=== PATIENT | male | born 1950 | race Two or more races ===

== ENCOUNTER 2017-09-09 14:24 | Emergency (ER) | payer OTHER ==
[2017-09-09] MEDS ORDERED: HYDROCHLOROTHIAZIDE 50 MG TAB PO SCH (14:30)
[2017-09-09] MEDS ORDERED: hydrALAZINE 20 MG/ML VIAL IVP ONE (14:32)
--- NOTE | 2017-09-09 14:35 | EDPHY ---
H & P HPI/ROS: CHIEF COMPLAINT: Hypertension HISTORY OF PRESENT ILLNESS: The patient is a 67-year-old man who comes to the ER by EMS for asymptomatic hypertension. He states that he follows hypertension daily but that he ran out of clonidine he had been taking since I saw him in the ER in February. His primary has him on hydrochlorothiazide 50 mg every morning and hydralazine 25 mg every morning. Today he knows his blood pressure was 230/140. He is asymptomatic. No chest pain. No headache. No shortness of breath. He does have a history of intracranial hemorrhage remotely but no symptoms currently. REVIEW OF SYSTEMS: Constitutional: denies: chills, fever, recent illness, recent injury EENTM: denies: blurred vision, double vision, nose congestion Respiratory: denies: cough, shortness of breath Cardiac: denies: chest pain, irregular heart rate, lightheadedness, palpitations Gastrointestinal/Abdominal: denies: abdominal pain, diarrhea, nausea, vomiting, blood streaked stools Genitourinary: denies: dysuria, frequency, hematuria, pain Musculoskeletal: denies: joint pain, muscle pain Skin: denies: lesions, rash, jaundice, bruising Neurological: denies: headache, numbness, paresthesia, tingling, dizziness, weakness Hematologic/Lymphatic: denies: blood clots, easy bleeding, easy bruising Immunologic/allergic: denies: HIV/AIDS, transplant EXAM: GENERAL: Well-appearing, well-nourished and in no acute distress. HEAD: Atraumatic, normocephalic. EYES: Pupils equal round and reactive to light, extraocular movements intact, sclera anicteric, conjunctiva are normal. ENT: TMs normal, nares patent, oropharynx clear without exudates. Moist mucous membranes. NECK: Normal range of motion, supple without lymphadenopathy or JVD. LUNGS: Breath sounds clear to auscultation bilaterally and equal. No wheezes rales or rhonchi. HEART: Regular rate and rhythm without murmurs, rubs or gallops. ABDOMEN: Soft, nontender, normoactive bowel sounds. No guarding, no rebound. No masses appreciated. BACK: No CVA tenderness, no spinal tenderness, step-offs or deformities EXTREMITIES: Normal range of motion, no pitting or edema. No clubbing or cyanosis. NEUROLOGICAL: Cranial nerves II through XII grossly intact. Normal speech, normal gait. 5/5 strength, normal movement in all extremities, normal sensation PSYCH: Normal mood, normal affect. SKIN: Warm, dry, normal turgor, no visible rashes or lesions. Source: Patient Exam Limitations: No limitations - Medical/Surgical History Hx Asthma: No Hx Chronic Respiratory Disease: No Hx Diabetes: No Hx Cardiac Disease: No Hx Renal Disease: No Hx Cirrhosis: No Hx Alcoholism: No Hx HIV/AIDS: No Hx Splenectomy or Spleen Trauma: No Other PMH: hypertension - Family History Significant Family History: No pertinent family hx - Social History Smoking Status: Former smoker Alcohol Use: Sober Drug Use: None Constitutional: Initial Vital Signs Temperature (C) 36.3 C 09/09/17 14:24 Heart Rate 117 H 09/09/17 14:24 Respiratory Rate 16 09/09/17 14:24 Blood Pressure 271/154 H 09/09/17 14:24 O2 Sat (%) 95 09/09/17 14:24 O2 Delivery Mode Room Air Allergies/Adverse Reactions: pseudoephedrine HCl [From Sudafed] Allergy (Unknown, Verified 03/15/16 06:00) Home Medications: Medication Instructions Recorded Hydrochlorothiazide [HCTZ (*)] 12.5 mg PO DAILY #0 cap 10/29/12 Lisinopril [Zestril 20 mg (*)] 20 mg PO BID #0 tab 10/29/12 amLODIPine BESYLATE [Norvasc 10 mg 10 mg PO DAILY #0 tab 10/29/12 (*)] clonIDINE [Catapres (*)] 0.1 mg PO BID #0 tab 10/29/12 hydrALAZINE [Apresoline 50 mg (*)] 50 mg PO TID #0 tab 10/29/12 clonIDINE [Catapres (*)] 0.1 mg PO BID #60 tab 09/09/17 Medical Decision Making - Diagnostics EKG Interpretation: An EKG obtained and was read and documented in trace view. Please see trace view for full reading and report. Sinus tachycardia, right bundle branch block unchanged from previous ED Course/Re-evaluation: 5:20 p.m. the patient remains asymptomatic. His heart rate is improved but his blood pressure still elevated 240/140. I will treated 2nd dose of clonidine. 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 6:00 p.m. the patient remains asymptomatic. His heart rate is in 80s and blood pressure is 200/100. He is eager to go home. I will discharge him at this time. I will have him start the clonidine again and have him speak with his primary about placing at. The patient understands and agrees with this plan. Differential Diagnosis: Partial list of the Differential diagnosis considered include but were not limited to; hypertension, anxiety and although unlikely based on the history and physical exam, I also considered infection, acute coronary disease, arrhythmia, CVA. I discussed these differential diagnoses and the plan with the patient as well as the usual and expected course. The patient understands that the diagnosis is provisional and that in medicine we are not always correct and that further workup is often warranted. Usual and customary warnings were given. All of the patient's questions were answered. The patient was instructed to return to the emergency department should the symptoms at all worsen or return, otherwise to followup with the physician as we discussed. - Data Points Medications Given: Discontinued Medications Clonidine (Catapres) 0.1 mg PO EDNOW ONE Stop: 09/09/17 15:47 Last Admin: 09/09/17 15:50 Dose: 0.1 mg Clonidine (Catapres) 0.1 mg PO EDNOW ONE Stop: 09/09/17 17:20 Last Admin: 09/09/17 17:25 Dose: 0.1 mg Hydralazine HCl (Apresoline) 10 mg IVP EDNOW ONE Stop: 09/09/17 14:33 Last Admin: 09/09/17 14:45 Dose: 10 mg Hydrochlorothiazide (Hydrochlorothiazide) 50 mg PO DAILY GENNARO Stop: 03/08/18 14:29 Last Admin: 09/09/17 15:25 Dose: Not Given Hydrochlorothiazide (Hydrochlorothiazide) 50 mg PO EDNOW ONE Stop: 09/09/17 15:01 Last Admin: 09/09/17 15:18 Dose: 50 mg Metoprolol Tartrate (Lopressor) 50 mg PO EDNOW ONE Stop: 09/09/17 16:32 Last Admin: 09/09/17 16:39 Dose: 50 mg Departure - Departure Disposition: Home, Routine, Self-Care Clinical Impression: HTN (hypertension) Qualifiers: Hypertension type: unspecified Qualified Code(s): I10 - Essential (primary) hypertension Condition: Fair Instructions: Chronic Hypertension (ED) Referrals: Patient,NotPresent [Unknown] - As per Instructions Prescriptions: clonIDINE [Catapres (*)] 0.1 mg PO BID #60 tab
[2017-09-09] MEDS ORDERED: HYDROCHLOROTHIAZIDE 50 MG TAB PO ONE (15:00)
--- NOTE | 2017-09-09 15:35 | CPEKG ---
Heart Rate: 113 RR Interval: 531 P-R Interval: 160 QRSD Interval: 132 QT Interval: 344 QTC Interval: 472 P [place]: 86 QRS [place]: 81 T Wave [place]: -70 EKG Severity - ABNORMAL ECG - EKG Impression: SINUS TACHYCARDIA EKG Impression: PROBABLE LEFT ATRIAL ABNORMALITY EKG Impression: RBBB AND LPFB Electronically Signed By: Gus Anderson 09-Sep-2017 15:46:22
[2017-09-09] MEDS ORDERED: METOPROLOL TARTRATE 50 MG TAB PO ONE (16:31)
[2017-09-09 17:29] VITALS: RESP 18; O2SAT 98
[2017-09-09 18:25] VITALS: BP 202/122; PULSE 78; TEMP 97.5
== END 2017-09-09 18:27 | disposition home or self-care (01) ==
LOC: EDUNIT#
DX: I10 Essential (primary) hypertension (principal); Z87.891 Personal history of nicotine dependence
CPT/HCPCS: 96374; J0360

== ENCOUNTER 2017-11-10 22:20 | Inpatient (IN) | payer OTHER ==
--- NOTE | 2017-11-10 22:25 | EDPHY ---
H & P HPI/ROS: HPI CHIEF COMPLAINT: Hypertension and nausea HISTORY OF PRESENT ILLNESS: This patient is 67-year-old male, significant past medical history for hypertension and intracranial bleed, he presents emergency room by private vehicle after his neighbor dropped him off. He presents with hypertension and nausea. He denies any headache or chest pain. Denies focal weakness. Denies numbness or tingling. His main complaint is feeling nauseous today. He still nauseous throughout the day. At 7:00 a.m. he took his blood pressure and states that it was in the 150 systolic. He missed his noon blood pressure medication as he has been having nausea but not having any vomiting. Denies diarrhea. Denies fever. He tells me he is compliant with his blood pressure medications. Upon arrival to the emergency room is noted to be very hypertensive 270s/150 complaining of nausea without chest pain or shortness of breath. He denies any abdominal pain. Denies headache. Patient reports to me he does not remember his clonidine dose. Past Medical History: Hypertension, intracranial bleed, diverticulitis Past Surgical History: Diverticulitis causing peritonitis requiring surgery Social History: Denies daily use of drugs alcohol tobacco. Lives locally. Family History: Noncontributory ROS REVIEW OF SYSTEMS: A comprehensive 10 point review of systems is otherwise negative aside from elements mentioned in the history of present illness. Exam Constitutional appears nontoxic, triage nursing summary reviewed, vital signs reviewed, awake/alert. Vital signs noted at triage to be very hypertensive Eyes normal conjunctivae and sclera, EOMI, PERRLA. HENT normal inspection, atraumatic, moist mucus membranes, no epistaxis, neck supple/ no meningismus, no raccoon eyes. Respiratory clear to auscultation bilaterally, normal breath sounds, no respiratory distress, no wheezing. Cardiovascular rate normal, regular rhythm, no murmur, no edema, distal pulses normal. Gastrointestinal soft, non-tender, no rebound, no guarding, normal bowel sounds, no distension, no pulsatile mass. Genitourinary no CVA tenderness. Musculoskeletal no midline vertebral tenderness, full range of motion, no calf swelling, no tenderness of extremities, no meningismus, good pulses, neurovascularly intact. Skin pink, warm, & dry, no rash, skin atraumatic. Neurologic awake, alert and oriented x 3, AAOx3, moves all 4 extremities equally, motor intact, sensory intact, CN II-XII intact, normal cerebellar, normal vision, normal speech. Psychiatric normal mood/affect. Heme/Lymph/Immune no lymphadenopathy. Differential Diagnosis: Includes but is not limited to in a particular order hypertensive emergency, hypertensive urgency, acute coronary syndrome, aortic dissection, intracranial bleed, hypertension causing end-organ damage, acute nausea from hypertension, medication noncompliance Medical Decision Making: Plan for this patient will be placed on full gambling monitor, IV will be established I have ordered him 10 mg IV hydralazine, 25 mg p.o. HCTZ, and 0.1 mg clonidine. Will obtain EKG, troponin, basic blood work, IV fluid bolus 500 cc and 4 mg IV Zofran for nausea. Re-evaluation: EKG interpretation by me on record in [employer] system. Impression time of EKG 2231: Sinus rhythm rate of 99 the right bundle-branch block present. I do not appreciate acute ischemic change on this EKG. When I compare this EKG to his old EKG dated 09/09/2017 very similar morphology. 2238: Plan for this patient slowly lower his blood pressure and re-evaluate closely. 2300: Patient signed over to Dr. Regina Braun at 11:00 p.m. shift change. Follow up labs. Follow up trop. ED x-ray chest one view reviewed by myself. Negative for acute cardiopulmonary disease. 2354: Patient's blood pressure still very high 227/121 despite oral and IV blood pressure medications I will order him on nicardipine drip. He will need to be admitted to the ICU at [facility]. 2257: Spoke with Lindsey Parrish. They have ICU Bed. Will plan on him being transfered to ICU at . 2314: Patient has been accepted at [facility] ICU inpatient hospitalization for hypertensive emergency. Spoke with Dr. Bang, who has accepted the patient. Patient is currently on a nicardipine drip systolic blood pressure down to 200. Will hold here around 200. Given that his initial blood pressure is 2 70s. 2314: I did re-evaluate the patient this time he has no chest pain or shortness of breath. He does complain of nausea. He did get up to urinate his heart rate did go up to 130s. I have asked Dr. Braun. Additionally will transfer patient by critical care transport to [facility]. Patient agrees for transfer. Source: Patient - Medical/Surgical History Hx Asthma: No Hx Chronic Respiratory Disease: No Hx Diabetes: No Hx Cardiac Disease: No Hx Renal Disease: No Hx Cirrhosis: No Hx Alcoholism: No Hx HIV/AIDS: No Hx Splenectomy or Spleen Trauma: No Other PMH: hypertension - Social History Smoking Status: Former smoker Constitutional: Initial Vital Signs Temperature (C) 36.9 C 11/10/17 22:29 Heart Rate 108 H 11/10/17 22:29 Respiratory Rate 18 11/10/17 22:29 Blood Pressure 272/139 H 11/10/17 22:29 O2 Sat (%) 98 11/10/17 22:29 O2 Delivery Mode Nasal Cannula O2 (L/minute) 2 Allergies/Adverse Reactions: pseudoephedrine HCl [From Sudafed] Allergy (Unknown, Verified 11/11/17 09:00) Other-Enter Comments lorazepam [From Ativan] Allergy (Verified 11/11/17 09:00) Nausea/vomiting Home Medications: Medication Instructions Recorded clonIDINE [Catapres (*)] 0.1 mg PO BID #0 tab 10/29/12 hydrALAZINE [Apresoline 50 mg (*)] 50 mg PO TID #0 tab 10/29/12 Aspirin EC [Aspirin EC 81 mg (*)] 162 mg PO DAILY 11/11/17 Hydrochlorothiazide [HCTZ (*)] 12.5 mg PO DAILY 11/11/17 Psyllium Husk (with Sugar) 1 each PO DAILY 11/11/17 [Metamucil Packet] Medical Decision Making - Data Points Laboratory Results: Laboratory Results 11/10/17 22:36 11/10/17 22:36 Medications Given: Discontinued Medications Amlodipine Besylate (Norvasc) 5 mg PO DAILY GENNARO Stop: 05/10/18 09:14 Last Admin: 11/11/17 10:11 Dose: 5 mg Clonidine (Catapres) 0.1 mg PO EDNOW ONE Stop: 11/10/17 22:32 Last Admin: 11/10/17 22:37 Dose: 0.1 mg Hydralazine HCl (Apresoline) 10 mg IVP EDNOW ONE Stop: 11/10/17 22:32 Last Admin: 11/10/17 22:37 Dose: 10 mg Hydrochlorothiazide (Hydrochlorothiazide) 25 mg PO EDNOW ONE Stop: 11/10/17 22:32 Last Admin: 11/10/17 22:37 Dose: 25 mg Sodium Chloride (Ns) 500 mls @ 1,000 mls/hr IV EDNOW ONE PRN Reason: Protocol Stop: 11/10/17 22:59 Last Admin: 11/10/17 22:44 Dose: 500 mls Nicardipine/Sodium Chloride (Cardene 0.1 Mg/Ml (Premix)) 200 mls @ 0 mls/hr IV CONT GENNARO; Titrate PRN Reason: Protocol Stop: 05/09/18 22:59 Last Admin: 11/10/17 23:00 Dose: 200 mls Sodium Chloride (Ns) 500 mls @ 0 mls/hr IV ONCE ONE PRN Reason: Wide Open Stop: 11/10/17 23:32 Last Admin: 11/10/17 23:40 Dose: 500 mls Nicardipine/Sodium Chloride (Cardene 0.1 Mg/Ml (Premix)) 200 mls @ 0 mls/hr IV CONT GENNARO; Titrate PRN Reason: Protocol Stop: 05/09/18 23:44 Last Admin: 11/11/17 10:21 Dose: 200 mls Ondansetron HCl (Zofran) 4 mg IVP Q4HRS PRN PRN Reason: Nausea/Vomiting, Can't Take PO Stop: 05/09/18 23:32 Last Admin: 11/11/17 10:13 Dose: 4 mg Promethazine HCl (Phenergan) 6.25 - 12.5 mg IVP Q6HRS PRN PRN Reason: Nausea/Vomiting, Can't Take PO Stop: 05/10/18 01:38 Last Admin: 11/11/17 02:00 Dose: 12.5 mg Tamsulosin HCl (Flomax) 0.4 mg PO DAILY GENNARO Stop: 05/10/18 09:14 Last Admin: 11/11/17 09:49 Dose: 0.4 mg Departure - Departure Disposition: [facility] Clinical Impression: Nausea, Hypertensive emergency Hypertension Qualifiers: Hypertension type: unspecified Qualified Code(s): I10 - Essential (primary) hypertension Condition: Serious
[2017-11-10] MEDS ORDERED: NS 500 ML IV ONE ×2 (22:30→23:31)
[2017-11-10] MEDS ORDERED: HYDROCHLOROTHIAZIDE 25 MG TAB PO ONE (22:31)
[2017-11-10] MEDS ORDERED: hydrALAZINE 20 MG/ML VIAL IVP ONE (22:31)
[2017-11-10 22:36] LABS: COLOR YELLOW; LEUKOCYTE ESTERASE,URINE NEGATIVE (NEGATIVE); NITRITE,URINE NEGATIVE (NEGATIVE)
--- NOTE | 2017-11-10 22:36 | CPEKG ---
Heart Rate: 99 RR Interval: 606 P-R Interval: 122 QRSD Interval: 132 QT Interval: 380 QTC Interval: 488 P [place]: 69 QRS [place]: 79 T Wave [place]: 27 EKG Severity - ABNORMAL ECG - EKG Impression: SINUS RHYTHM EKG Impression: RIGHT BUNDLE BRANCH BLOCK Electronically Signed By: Irma Clement 11-Nov-2017 14:06:49
[2017-11-10 22:45] LABS: RBC,URINE NONE SEEN /hpf (0-3); WBC,URINE 0-1 /hpf (0-3)
[2017-11-10 22:51] LABS: % IMMATURE GRANULYOCYTES 0.4 % (0.0-1.1); ABSOLUTE IMMATURE GRANULOCYTES 0.02 10^3/uL (0.00-0.10); ADD DIFF? NO; ADD MORPH? NO; ADD SCAN? NO; ATYPICAL LYMPHOCYTE FLAG 0 (0-99); FRAGMENT RBC FLAG 0 (0-99); HEMATOCRIT 49.2 % (40.0-51.0); HEMOGLOBIN 17.2 g/dL (13.7-17.5); LEFT SHIFT FLG 0 (0-99); LIPEMIA HEMOLYSIS FLAG 90 (0-99); MEAN CELL HEMOGLOBIN 31.7 pg (27.9-34.1); MEAN CELL VOLUME 90.6 fL (81.5-99.8); MEAN PLATELET VOLUME 10.1 fL (8.7-11.7); PLATELET CLUMPS FLAG 0 (0-99); PLATELET COUNT 210 10^3/uL (150-400); RED BLOOD CELL COUNT 5.43 10^6/uL (4.40-6.38); RED CELL DISTRIBUTION WIDTH 12.1 % (11.5-15.2)
[2017-11-10] MEDS ORDERED: niCARdipine/NACL/200 ML BAG IV ONE (22:55)
[2017-11-10 23:00] LABS: INR 0.98 (0.83-1.16); PROTIME(PATIENT) 12.9 SEC (12.0-15.0)
[2017-11-10] MEDS ORDERED: niCARdipine/NACL 200 ML IV SCH ×2 (23:00→23:45)
[2017-11-10 23:01] LABS: APTT 33.2 SEC (23.0-38.0)
[2017-11-10 23:05] LABS: ALBUMIN 4.2 g/dL (3.5-5.0); BILIRUBIN-CONJUGATED 0.3 mg/dL (0.0-0.5); BILIRUBIN-UNCONJUGATED 0.7 mg/dL (0.0-1.1); CALCIUM 10.3 mg/dL (8.5-10.4); CREATININE 1.4 mg/dL (0.7-1.3); MAGNESIUM 2.2 mg/dL (1.6-2.3); POTASSIUM 4.3 mEq/L (3.5-5.2); TOTAL PROTEIN 7.4 g/dL (6.3-8.2)
[2017-11-10 23:16] LABS: CREATINE KINASE-MB FRACTION 1.5 ng/mL (0.00-4.55); TROPONIN I 0.019 ng/mL (0.000-0.034)
[2017-11-10] MEDS ORDERED: ACETAMINOPHEN 325 MG TAB PO PRN (23:33)
[2017-11-10] MEDS ORDERED: HYDROCODONE/APAP 5/325 TAB PO PRN (23:33)
[2017-11-10] MEDS ORDERED: ONDANSETRON 4 MG/2 ML VIAL IVP PRN (23:33)
[2017-11-11] MEDS ORDERED: PROMETHAZINE HCL 25 MG/ML INJ IVP PRN (01:39)
--- NOTE | 2017-11-11 02:43 | PDGENHP ---
History and Physical - Chief Complaint nausea, HTN - History of Present Illness Source - patient able to provide history and appears reliable. 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 Patient denies any vomiting, diarrhea, fevers/chills or abdominal pain. He reports he had decreased appetite and did not take his afternoon antihypertensive medications. Patient triage vitals were significant for BP 270/170. He denies any headache, changes in vision, numbness/tingling or weakness. Patient has chronic mild L facial drooping as sequelae from his hemorrhagic cva. Patient is known to me from previous hospitalization at [facility] last week. In the last 2-3 weeks patient has has numerous ED visits at [facility] at end of september/beginning of October with 1 hospitalization for hypertensive urgency and angelica. He has had multiple ED visits at [facility] last week with 1 admission also for hypertensive urgency. Patient had evidence of angelica for which his lisinopril and HCTZ had been held. He is also on clonidine PO and hydralazine TID for which there is question of medication compliance. History Information - Allergies/Home Medication List Allergies/Adverse Reactions: pseudoephedrine HCl [From [employer]] Allergy (Unknown, Verified 03/15/16 06:00) I have personally reviewed and updated: family history, medical history, social history, surgical history - Past Medical History Additional medical history: benign essential HTN uncontrolled. 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 diverticulitis s/p ex lap for perf/peritonitis. hx of poor medication compliance. - Surgical History Additional surgical history: ex-lap for peritonitis related to diverticular perforation. - Family History Additional family history: father - HTN - Social History Smoking Status: Former smoker (quit 2010) Tobacco Use: Cigarettes Alcohol Use: Sober (quit drinking early August 2017 after completing rehab program in [place].) Drug Use: None (patient denies any illicit drug use. reports his sister with whom he lives smokes a lot of marijuana. ) Additional social history: COR - FULL. patient desires mother Madison Segal to act as proxy if needed. Review of Systems Review of Systems: ROS: 10pt was reviewed & negative except for what was stated in HPI & below Physical Exam Physical Exam: Selected Entries 11/10/17 22:29 Blood Pressure Automatic Method Heart Rate 108 H Respiratory 18 Rate O2 Sat (%) 98 Temperature (C) 36.9 C Blood Pressure 272/139 H Mean Arterial 183 H Pressure (MAP) O2 Delivery Room Air Mode Temperature Oral Source Temp Pulse Resp BP Pulse Ox 36.9 C 120 H 16 210/110 H 99 11/10/17 22:29 11/10/17 23:59 11/10/17 23:59 11/10/17 23:59 11/10/17 23:59 O2 (L/minute) 2 Constitutional: no apparent distress, not in pain, chronically ill appearing, uncomfortable (patient appears fatigued and uncomfortable with complaints of persistent nausea. ) Eyes: PERRL, anicteric sclera, EOMI, No scleral injection Ears, Nose, Mouth, Throat: moist mucous membranes, ears appear normal, no oral mucosal ulcers, poor dentition Cardiovascular: regular rate and rhythym, no murmur, rub, or gallop, pulses symmetric bilaterally, No systolic murmur, No edema Peripheral Pulses: 1+: dorsalis-pedis (R), dorsalis-pedis (L) Respiratory: no respiratory distress, no rales or rhonchi, clear to auscultation Gastrointestinal: normoactive bowel sounds, soft, non-tender abdomen, no palpable masses, No rebound, No distension Genitourinary: no bladder tenderness, lopez in urethra Skin: warm, normal color, no rashes or abrasions, No fluctuance, No rash Musculoskeletal: full muscle strength, No pain with ROM, No generalized weakness Neurologic: AAOx3, sensation intact bilaterally, facial droop (minimal nasolabial fold flattening) Psychiatric: interacting appropriately, not anxious, not encephalopathic, thought process linear, encephalopathic Lab Data & Imaging Review 11/10/17 22:36 11/10/17 22:36 WBC 5.16 10^3/uL (3.80-9.50) 11/10/17 22:36 RBC 5.43 10^6/uL (4.40-6.38) 11/10/17 22:36 Hgb 17.2 g/dL (13.7-17.5) 11/10/17 22:36 Hct 49.2 % (40.0-51.0) 11/10/17 22:36 MCV 90.6 fL (81.5-99.8) 11/10/17 22:36 MCH 31.7 pg (27.9-34.1) 11/10/17 22:36 MCHC 35.0 g/dL (32.4-36.7) 11/10/17 22:36 RDW 12.1 % (11.5-15.2) 11/10/17 22:36 Plt Count 210 10^3/uL (150-400) 11/10/17 22:36 MPV 10.1 fL (8.7-11.7) 11/10/17 22:36 Neut % (Auto) 53.1 % (39.3-74.2) 11/10/17 22:36 Lymph % (Auto) 33.3 % (15.0-45.0) 11/10/17 22:36 [place] % (Auto) 9.3 % (4.5-13.0) 11/10/17 22:36 Eos % (Auto) 3.5 % (0.6-7.6) 11/10/17 22:36 Baso % (Auto) 0.4 % (0.3-1.7) 11/10/17 22:36 Nucleat RBC Rel Count 0.0 % (0.0-0.2) 11/10/17 22:36 Absolute Neuts (auto) 2.74 10^3/uL (1.70-6.50) 11/10/17 22:36 Absolute Lymphs (auto) 1.72 10^3/uL (1.00-3.00) 11/10/17 22:36 Absolute Monos (auto) 0.48 10^3/uL (0.30-0.80) 11/10/17 22:36 Absolute Eos (auto) 0.18 10^3/uL (0.03-0.40) 11/10/17 22:36 Absolute Basos (auto) 0.02 10^3/uL (0.02-0.10) 11/10/17 22:36 Absolute Nucleated RBC 0.00 10^3/uL (0-0.01) 11/10/17 22:36 Immature Gran % 0.4 % (0.0-1.1) 11/10/17 22:36 Immature Gran # 0.02 10^3/uL (0.00-0.10) 11/10/17 22:36 PT 12.9 SEC (12.0-15.0) 11/10/17 22:36 INR 0.98 (0.83-1.16) 11/10/17 22:36 APTT 33.2 SEC (23.0-38.0) 11/10/17 22:36 Sodium 139 mEq/L (134-144) 11/10/17 22:36 Potassium 4.3 mEq/L (3.5-5.2) 11/10/17 22:36 Chloride 104 mEq/L (97-110) 11/10/17 22:36 Carbon Dioxide 18 mEq/l (22-31) L 11/10/17 22:36 Anion Gap 17 mEq/L (8-16) H 11/10/17 22:36 BUN 27 mg/dL (7-23) H 11/10/17 22:36 Creatinine 1.4 mg/dL (0.7-1.3) H 11/10/17 22:36 Estimated GFR 51 11/10/17 22:36 Glucose 116 mg/dL (70-100) H 11/10/17 22:36 Calcium 10.3 mg/dL (8.5-10.4) 11/10/17 22:36 Magnesium 2.2 mg/dL (1.6-2.3) 11/10/17 22:36 Total Bilirubin 1.0 mg/dL (0.1-1.4) 11/10/17 22:36 Conjugated Bilirubin 0.3 mg/dL (0.0-0.5) 11/10/17 22:36 Unconjugated Bilirubin 0.7 mg/dL (0.0-1.1) 11/10/17 22:36 AST 22 IU/L (17-59) 11/10/17 22:36 ALT 36 IU/L (21-72) 11/10/17 22:36 Alkaline Phosphatase 89 IU/L (38-126) 11/10/17 22:36 Creatine Kinase 55 IU/L (0-224) 11/10/17 22:36 CK-MB (CK-2) Fraction 1.50 ng/mL (0.00-4.55) 11/10/17 22:36 Troponin I 0.019 ng/mL (0.000-0.034) 11/10/17 22:36 NT-Pro-B Natriuret Pep 2110 pg/mL (0-125) H 11/10/17 22:36 Total Protein 7.4 g/dL (6.3-8.2) 11/10/17 22:36 Albumin 4.2 g/dL (3.5-5.0) 11/10/17 22:36 Lipase 398 IU/L (23-300) H 11/10/17 22:36 Urine Color YELLOW 11/10/17 22:25 Urine Appearance CLEAR 11/10/17 22:25 Urine pH 6.0 (5.0-7.5) 11/10/17 22:25 Ur Specific [place] 1.010 (1.002-1.030) 11/10/17 22:25 Urine Protein TRACE (NEGATIVE) H 11/10/17 22:25 Urine Ketones NEGATIVE (NEGATIVE) 11/10/17 22:25 Urine Blood NEGATIVE (NEGATIVE) 11/10/17 22:25 Urine Nitrate NEGATIVE (NEGATIVE) 11/10/17 22:25 Urine Bilirubin NEGATIVE (NEGATIVE) 11/10/17 22:25 Urine Urobilinogen 0.2 EU (0.2-1.0) 11/10/17 22:25 Ur Leukocyte Esterase NEGATIVE (NEGATIVE) 11/10/17 22:25 Urine RBC NONE SEEN /hpf (0-3) 11/10/17 22:25 Urine WBC 0-1 /hpf (0-3) 11/10/17 22:25 Ur Epithelial Cells NONE SEEN /lpf (NONE-1+) 11/10/17 22:25 Urine Glucose NEGATIVE (NEGATIVE) 11/10/17 22:25 Urine Opiates Screen NEGATIVE (NEGATIVE) 11/10/17 22:25 Urine Barbiturates NEGATIVE (NEGATIVE) 11/10/17 22:25 Ur Phencyclidine Scrn NEGATIVE (NEGATIVE) 11/10/17 22:25 Ur Amphetamine Screen NEGATIVE (NEGATIVE) 11/10/17 22:25 U Benzodiazepines Scrn NEGATIVE (NEGATIVE) 11/10/17 22:25 Urine Cocaine Screen NEGATIVE (NEGATIVE) 11/10/17 22:25 U Marijuana (THC) Screen NON-NEGATIVE (NEGATIVE) H 11/10/17 22:25 Visualized and Interpreted Chest x-ray results: Yes Chest X-Ray results: no infiltrate EKG additional interpertation: NSR 90s. RBBB. no acute ST changes. QTc 488 Assessment & Plan Assessment: 1. malignant hypertension - s/p cardene gtt. initial SBP at [facility] was noted to be 270/170. Patient received clonidine and hydralazine in the ED. he was placed on cardene gtt with rapid correction and subsequently gtt held with SBP 170s. Goal changes 20-25% first 1 hour and subsequently additional 10% next 23 hours. Patient has hx difficulties with medication compliance. He notes 2/2 nausea he was note able to take his antihypertensives this PM. Patient with numerous hospital and ED visits in the last 2 weeks. he has continued on po clonidine however patient would likely benefit from clonidine patch if this is the antihypertensive of choice for patient to improve compliance. Patient may benefit from evaluation for possible home health to ensure medication compliance. 2. Nausea - zofran, phenergan prn. ddx including gastritis, gastroenteritis, pud. 3. urinary retention - patient reports when he receives IV hydralazine/IVF he develops acute urinary retention every time. lopez catheter was placed with 800 mls out. hold IVF. oral intake after tx of nausea. d/c lopez in AM and monitor bladder scan. patient denies any urinary symptoms at home. 4. ckd - patient may be close to baseline. last week creatinine was 1.79 5. elevated lipase - minimally elevated not near 3x upper limit of normal. patient without abdominal pain and clinically not c/w pancreatitis. possible gastritis or early viral syndrome. pt afebrile. no diarrhea. repeat in AM. FEN - SLIV. electrolyte replacement prn. cardiac diet. PPX - SCDs. hx of ICH holding anticoagulation COR - FULL. patient desires mother Madison Segal to act as proxy if needed. Dispo - Admit to inpatient status given severity of HTN, need for cardene gtt
--- NOTE | 2017-11-11 03:12 | PDMN ---
Medical Necessity Medical necessity: C/M review: est. > 2 MN LOS for eval and TX of acute and persistent malignant hypertension, nausea, urinary retention, elevated lipase requiring Rdz catheter placement, IV Cardene infusion, IV Phenergan, cardiac monitoring, pulse oximetry, comorbid recent hospitalization for hypertensive urgency and acute kidney injury, numerous ED visits in 2-3 weeks prior to this admission, history of uncontrolled benign essential hypertension, hemorrhagic CVA related to hypertension with persistent mild left facial droop, diverticulitis S/P exploratory laparotomy for perforation / peritonitis, poor medication compliance per H/P.
[2017-11-11 06:15] LABS: CALCIUM 9.6 mg/dL (8.5-10.4); CREATININE 1.4 mg/dL (0.7-1.3); MAGNESIUM 2.1 mg/dL (1.6-2.3); POTASSIUM 4.1 mEq/L (3.5-5.2)
[2017-11-11 06:18] LABS: % IMMATURE GRANULYOCYTES 0.4 % (0.0-1.1); ABSOLUTE IMMATURE GRANULOCYTES 0.02 10^3/uL (0.00-0.10); ADD DIFF? NO; ADD MORPH? NO; ADD SCAN? NO; ATYPICAL LYMPHOCYTE FLAG 0 (0-99); FRAGMENT RBC FLAG 0 (0-99); HEMATOCRIT 43.7 % (40.0-51.0); HEMOGLOBIN 15.6 g/dL (13.7-17.5); LEFT SHIFT FLG 0 (0-99); LIPEMIA HEMOLYSIS FLAG 90 (0-99); MEAN CELL HEMOGLOBIN 32.6 pg (27.9-34.1); MEAN CELL HEMOGLOBIN CONCENTR. 35.7 g/dL (32.4-36.7); MEAN CELL VOLUME 91.4 fL (81.5-99.8); MEAN PLATELET VOLUME 10.6 fL (8.7-11.7); PLATELET CLUMPS FLAG 0 (0-99); PLATELET COUNT 182 10^3/uL (150-400); RED BLOOD CELL COUNT 4.78 10^6/uL (4.40-6.38); RED CELL DISTRIBUTION WIDTH 12.1 % (11.5-15.2)
[2017-11-11 07:09] VITALS: TEMP 97.7; O2SAT 96
[2017-11-11] MEDS: amLODIPine BESYLATE 5 MG TAB PO SCH ×3 (09:42→10:11)
[2017-11-11] MEDS: TAMSULOSIN HCL 0.4 MG CAP PO SCH ×2 (09:43→09:49)
[2017-11-11 10:33] VITALS: RESP 22
[2017-11-11 11:07] VITALS: BP 217/107; PULSE 120
--- NOTE | 2017-11-11 14:39 | ASDISCHSUM ---
Discharge Information Plan Status: Medically Cleared to Leave: Discharge Date:11/11/2017 11:25 AM CM D/C Disposition: ADT D/C Disposition:Against Medical Advice Projected Discharge Date:11/11/2017 11:25 AM Transportation at D/C: Discharge Delay Reason: Follow-Up Date:11/11/2017 11:25 AM Discharge Slot: Final Diagnosis: Placement Information Patient Contact Information Contact Name:SUSI Relationship:Mother Address:[address] Work Phone: City:[facility] Phone: State/Zip Code:[place] [address] Email: Financial Information Financial Class: Primary Plan Desc:MEDICARE INPATIENT Primary Plan Number:[id number] Secondary Plan Desc:[facility] Secondary Plan Number:[id number] Assessment Information Intervention Information
[2017-11-11] MEDS ORDERED: hydrALAZINE 25 MG TAB PO SCH (16:00)
--- NOTE | 2017-11-11 16:27 | HOSPPROG ---
Hospitalist Progress Note Assessment/Plan: Patient very resistant to any recommendations given by nursing and physicians here. Initially refused Norvasc, but then took it. [facility] These meds are causing intolerable side effects however. Very circular thinking. Requested transfer to [facility] which was felt to be unlikely approved by the [place]. Recurrent hospital visits with critical high BP required complete overhaul of his current regimen. In the end he decided that he did not want treatment here. He signed out AMA and plans to drive directly to ER at [facility]. Risks described including and massive CVA. Patient signed AMA paperwork. Please see dictation for further details. Objective: Vital Signs Temp Pulse Resp BP Pulse Ox 36.5 C 120 H 22 H 217/107 H 96 11/11/17 07:00 11/11/17 11:00 11/11/17 10:32 11/11/17 11:00 11/11/17 08:00 Laboratory Results 11/11/17 05:58 11/11/17 05:58 11/10/17 11/11/17 11/12/17 05:59 05:59 05:59 Intake Total 1000 1090 Output Total 1525 470 Balance -525 620 PT 12.9 SEC (12.0-15.0) 11/10/17 22:36 INR 0.98 (0.83-1.16) 11/10/17 22:36 - Time Spent With Patient Time Spent with Patient: greater than 35 minutes Time Spent with Patient: Greater than 35 minutes spent on this patients care, greater than 50% of time spent counseling, educating, and coordinating care regarding the above mentioned plan. ICD10 Worksheet Patient Problems: Problems Problem Status Onset Hypertension Acute Nausea Acute
--- NOTE | 2017-11-12 05:39 | GDS ---
[f rep st] DISCHARGE SUMMARY Please note this was an AMA discharge. DISCHARGE DIAGNOSES: 1. Malignant hypertension. 2. Nausea. 3. Urinary retention. 4. Chronic kidney disease. 5. Previous hemorrhagic stroke with persistent left facial droop. 6. Poor medication compliance. HISTORY: The patient is a 67-year-old male with poorly controlled hypertension and a history of a pr evious hemorrhagic stroke who presents to urgent care with complaints of nausea. He was found to be severely hypertensive and was admitted to the ICU on a Cardene drip. Initial blood pressure 270/170. He has had multiple recent hospitalizations and ER visits at [facility] as well for the me complaint. He has recently developed increasing creatinine so his lisinopril and hydrochlorothiaz jazmyn have been held. He does not take his hydralazine regularly because he believes it causes him vance sea and urinary retention. The patient was admitted to ICU, placed on a Cardene drip, and did get good blood pressure control. We did give him some oral medications but was continuing on a Cardene drip at the time of leaving the hospital. We made suggestions regarding alternative blood pressure medication regimens to improve c ompliance as well as decrease side affects, however, the patient was refusing to consider any of our recommendations and only wanted to do his blood pressure medications as recommended by the [facility]. He had requested transfer to the [place], which was not feasible. He refused to take any new an tihypertensives recommended by us. He decided to sign himself out AMA and a friend came and picked h im up, and plan is to drive immediately to the [facility] Emergency Room. The patient was ful ly informed regarding the risks of his severe uncontrolled hypertension including recurrent stroke. The patient had decisional capacity, clearly understood these risks, and decided to leave our [facility] with the plan as discussed above. /[id number]/MODL
[2017-11-12] MEDS ORDERED: HYDROCHLOROTHIAZIDE 12.5 MG CAP PO SCH (09:00)
[2017-11-12] MEDS ORDERED: ASPIRIN EC 81 MG TAB PO SCH (09:00)
--- NOTE | 2017-11-15 22:17 | PQFORM ---
PHYSICIAN QUERY FORM Needs Your Response This query form is being sent to you to assure this patient record is coded properly. Please respond to the question below: STONE DRESSER QUESTION: Dr Tam Can this patients Malignant Hypertension be further classified to either ___ Hypertensive Urgency _x__ Hypertensive Emergency ___ Hypertensive Crisis ___ Other (Please specify ) ___ Unable to Determine Thank You Elizabeth PORTER Trimming Press Operator INSTRUCTIONS FOR RESPONSE: Answer question by clicking on the "Edit Document" button. Move cursor to area below the stars. When complete, hit "Save." Click on the "Sign" button, then click "Sign" again. Type in your PIN and hit "Enter." MTDD
== END 2017-11-11 11:25 | disposition left against medical advice (07) | DRG 305 ==
LOC: CED 22:20 → CEDHOLD 23:11 → F2N 11-11 00:27
PROVIDERS: ADMIT Family Medicine; ATTEND Internal Medicine
DX: I16.1 Hypertensive emergency (principal); I12.9 Hypertensive chronic kidney disease with stage 1 through stage 4 chronic kidney disease, or unspecified chronic kidney disease; T46.5X6A Underdosing of other antihypertensive drugs, initial encounter; N18.9 Chronic kidney disease, unspecified; R11.0 Nausea; R33.9 Retention of urine, unspecified; I69.992 Facial weakness following unspecified cerebrovascular disease; Z87.891 Personal history of nicotine dependence; F10.21 Alcohol dependence, in remission
CPT/HCPCS: 71010-PO; 80048-PO; 80076-PO; 80307-PO; 81003-PO; 81015-PO; 82550-PO; 82553-PO; 83690-PO; 83735-PO; 83880-PO; 84443-PO; 84484-PO; 85025-PO; 85610-PO; 85730-PO; 96365; J0360; J2405; J2550

== ENCOUNTER 2017-12-02 10:07 | Emergency (ER) | payer OTHER ==
--- NOTE | 2017-12-02 10:07 | EDPHY ---
H & P Time Seen by Provider: 12/02/17 10:07 HPI/ROS: CHIEF COMPLAINT: "My blood pressure took off " HISTORY OF PRESENT ILLNESS: Previous H&P dated 11/10/2017 personally reviewed. History of hypertension and hemorrhagic CVA. 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 Denies chest pain or shortness of breath or headache difficulty walking or vertigo or dizziness or syncope or near syncope. Symptoms were severe now are mild. Not better worse with thing. REVIEW OF SYSTEMS: Eye: no change in vision ENT: no sore throat Cardiac: no chest pain or syncope Pulmonary: no cough or SOB Abdomen: no vomiting, diarrhea, abdominal pain Musculoskeletal: no back pain Skin: no rash Neuro: no headache Constitutional: no fever : no urinary symptoms A comprehensive 10 point review of systems is otherwise negative aside from elements mentioned in the history of present illness. PAST MEDICAL HISTORY: Hypertension with hemorrhagic CVA, diverticulitis for with laparotomy for perforation. Social history: Quit smoking in 2010, former alcohol user. He was at [facility] yesterday, usually goes to the [facility]. General Appearance: Alert and conversant, cooperative. Eyes: No scleral icterus. ENT, Mouth: Normal mucous membranes. Slight left facial droop which is old. Respiratory: Normal respiratory effort, breath sounds equal, lungs are clear to auscultation. Cardiovascular: Regular rate and rhythm. No murmur. Gastrointestinal: Abdomen is soft and non tender. Neurological: Alert, slight left facial droop which is old and a normal motor and sensory in extremities. Not tremulous. Skin: Warm and dry, no rashes. Musculoskeletal: No peripheral edema. Psychiatric: Not agitated. Emergency Department course/MDM: Patient presents with palpitations but not with ischemic symptoms. 1137: Lab reviewed, record from November 29 from [facility] personally reviewed. His EKG as identical, his creatinine was 1.6 then, the note states that he has been in the emergency department at [facility] 7 times since August of 2017 for hypertension. 149/89, hr 73, does not have evidence of hypertensive urgency or acute end- organ damage, stable for discharge. EKG does not show morphology changes from 1 obtained 3 days ago at [facility]. He does not present with ischemic symptoms. Constitutional: Initial Vital Signs Temperature (C) 37.0 C 12/02/17 10:24 Heart Rate 76 12/02/17 10:24 Respiratory Rate 16 12/02/17 10:24 Blood Pressure 146/89 H 12/02/17 10:24 O2 Sat (%) 97 12/02/17 10:24 O2 Delivery Mode Room Air Allergies/Adverse Reactions: pseudoephedrine HCl [From Sudafed] Allergy (Unknown, Verified 11/11/17 09:00) Other-Enter Comments lorazepam [From Ativan] Allergy (Verified 11/11/17 09:00) Nausea/vomiting Home Medications: Medication Instructions Recorded clonIDINE [Catapres (*)] 0.1 mg PO BID #0 tab 10/29/12 hydrALAZINE [Apresoline 50 mg (*)] 50 mg PO TID #0 tab 10/29/12 Aspirin EC [Aspirin EC 81 mg (*)] 162 mg PO DAILY 11/11/17 Hydrochlorothiazide [HCTZ (*)] 12.5 mg PO DAILY 11/11/17 Psyllium Husk (with Sugar) 1 each PO DAILY 11/11/17 [Metamucil Packet] Medical Decision Making - Diagnostics EKG Interpretation: 12-lead EKG interpreted by me; official reading is in trace master. My interpretation is sinus rhythm rate 67 with right bundle branch block, unchanged from EKG obtained from [facility] 3 days ago. Differential Diagnosis: Differential for palpitations considered including but not limited to malignant dysrhythmia, atrial fibrillation, sinus tachycardia, anxiety - Data Points Laboratory Results: Laboratory Results 12/02/17 10:10 12/02/17 10:10 12/02/17 12/02/17 10:10 10:10 WBC REJ RBC TNP Hgb TNP Hct TNP MCV TNP MCH TNP MCHC TNP RDW TNP Plt Count TNP MPV TNP Neut % (Auto) TNP Lymph % (Auto) TNP [place] % (Auto) TNP Eos % (Auto) TNP Baso % (Auto) TNP Nucleat RBC Rel Count TNP Absolute Neuts (auto) TNP Absolute Lymphs (auto) TNP Absolute Monos (auto) TNP Absolute Eos (auto) TNP Absolute Basos (auto) TNP Absolute Nucleated RBC TNP Immature Gran % TNP Immature Gran # TNP Sodium 142 mEq/L mEq/L (134-144) Potassium 4.3 mEq/L mEq/L (3.5-5.2) Chloride 106 mEq/L mEq/L (97-110) Carbon Dioxide 23 mEq/l mEq/l (22-31) Anion Gap 13 mEq/L mEq/L (8-16) BUN 29 mg/dL H mg/dL (7-23) Creatinine 1.6 mg/dL H mg/dL (0.7-1.3) Estimated GFR 44 Glucose 114 mg/dL H mg/dL (70-100) Calcium 10.6 mg/dL H mg/dL (8.5-10.4) Troponin I 0.020 ng/mL ng/mL (0.000-0.034) Medications Given: Discontinued Medications Sodium Chloride (Ns) 1,000 mls @ 0 mls/hr IV EDNOW ONE; Wide Open PRN Reason: Protocol Stop: 12/02/17 11:00 Last Admin: 12/02/17 11:33 Dose: 1,000 mls Departure - Departure Disposition: Home, Routine, Self-Care Clinical Impression: Palpitations, Hypertension Condition: Good Instructions: Heart Palpitations (ED), Hypertension (ED) Referrals: Yosef Patel MD [Medical Doctor] - As per Instructions Patient,NotPresent [Unknown] - As per Instructions ([facility] your PCP)
--- NOTE | 2017-12-02 10:19 | CPEKG ---
Heart Rate: 67 RR Interval: 896 P-R Interval: 140 QRSD Interval: 142 QT Interval: 428 QTC Interval: 452 P [place]: 75 QRS [place]: 73 T Wave [place]: 63 EKG Severity - ABNORMAL ECG - EKG Impression: SINUS RHYTHM EKG Impression: RIGHT BUNDLE BRANCH BLOCK Electronically Signed By: Kristopher Armendariz 02-Dec-2017 13:00:40
[2017-12-02 10:26] VITALS: PULSE 76; TEMP 98.6
[2017-12-02 10:29] VITALS: O2SAT 98
[2017-12-02] MEDS ORDERED: NS 1,000 ML IV ONE (10:59)
[2017-12-02 11:53] VITALS: BP 128/75; RESP 16
== END 2017-12-02 11:53 | disposition home or self-care (01) ==
LOC: EDUNIT#
PROC: 3E0337Z Introduction of Electrolytic and Water Balance Substance into Peripheral Vein, Percutaneous Approach (ICD-10-PCS; principal; 2017-12-02)
DX: R00.2 Palpitations (principal); I10 Essential (primary) hypertension; E86.9 Volume depletion, unspecified; Z86.73 Personal history of transient ischemic attack (TIA), and cerebral infarction without residual deficits; Z87.891 Personal history of nicotine dependence; Z79.82 Long term (current) use of aspirin

== ENCOUNTER 2017-12-04 11:47 | Emergency (ER) | payer OTHER ==
[2017-12-04 12:00] VITALS: BP 129/82; PULSE 64; RESP 18; TEMP 98; O2SAT 94
--- NOTE | 2017-12-04 12:25 | EDPHY ---
H & P HPI/ROS: CHIEF COMPLAINT: Bubbling in right ear History by patient HISTORY OF PRESENT ILLNESS: 67-year-old man presents complaining of feeling a bubbling sensation in his right ear or or feeling like there is something in there times 2-3 days. He tried putting some while in it but this did not seem to help. He did not see anything going to his ear. He says he did not put anything into his ear and does not clean them with Q-tips. He denies any drainage or loss of hearing. REVIEW OF SYSTEMS: As in HPI, and all other systems reviewed and are negative Smoking Status: Former smoker Physical Exam: General Appearance: Alert and no distress. Head: normocephalic, atraumatic, no sinus tenderness Eyes: Pupils equal and round no injection. Ears: Left: TM l and canal clear Right ear: TM with fluid behind but landmarks visible, positive brown adherent foreign body in the inferior aspect of the canal at around 5:00 p.m., no tragal tenderness, no discharge OP: mucus membranes moist, [ ] tonsillar enlargement, [ ] exudates Neck: no meningismus, [ ] cervical nodes, no submandibular nodes Extremities have full range of motion and are nontender. Skin: No rashes or lesions. Constitutional: Initial Vital Signs Temperature (C) 36.6 C 12/04/17 11:57 Heart Rate 64 12/04/17 11:57 Respiratory Rate 18 12/04/17 11:57 Blood Pressure 129/82 H 12/04/17 11:57 O2 Sat (%) 94 12/04/17 11:57 O2 Delivery Mode Room Air Allergies/Adverse Reactions: pseudoephedrine HCl [From Sudafed] Allergy (Unknown, Verified 11/11/17 09:00) Other-Enter Comments lorazepam [From Ativan] Allergy (Verified 11/11/17 09:00) Nausea/vomiting Home Medications: Medication Instructions Recorded clonIDINE [Catapres (*)] 0.1 mg PO BID #0 tab 10/29/12 hydrALAZINE [Apresoline 50 mg (*)] 50 mg PO TID #0 tab 10/29/12 Aspirin EC [Aspirin EC 81 mg (*)] 162 mg PO DAILY 11/11/17 Hydrochlorothiazide [HCTZ (*)] 12.5 mg PO DAILY 11/11/17 Psyllium Husk (with Sugar) 1 each PO DAILY 11/11/17 [Metamucil Packet] MDM/Departure - [facility] ED Course/Re-evaluation: 67-year-old man presents with "bubbling "sensation in right ear. Exam reveals brown, round colored foreign body the inferior aspect of the right ear canal. I instructed to curette this out however it was hard and adherent. I also attempted removal with alligator forceps but was unable to obtain purchase and also attempted suction but again found the foreign body to be too adherent to the ear canal. I can't tell whether this is an insect such as a tic or a mass or a small clump of cerumen. We will do a trial of Debrox and I will have the patient follow up with Ear Nose Throat specialist. I discussed this with the patient and he understands and is agreeable to this plan. - Depart Clinical Impression: Foreign body in right ear, initial encounter Condition: Good Instructions: Ear Foreign Body (ED) Additional Instructions: You were seen by Dr. Bee Alvarado today. Try Debrox drops in the ear to clear out the wax or foreign body . Please follow up with the Ear Nose Throat specialist. You may see an ENT specialist at the [facility] or you may see Dr. Chao. Return for any worsening or new concerns. Referrals: [facility] YOU[facility] [Other] - As per Instructions Melvin Chao MD [Medical Doctor] - As per Instructions
== END 2017-12-04 12:39 | disposition home or self-care (01) ==
LOC: CED 11:47
PROC: 09C37ZZ Extirpation of Matter from Right External Auditory Canal, Via Natural or Artificial Opening (ICD-10-PCS; principal; 2017-12-04)
DX: T16.1XXA Foreign body in right ear, initial encounter (principal); Z79.82 Long term (current) use of aspirin; Z87.891 Personal history of nicotine dependence; X58.XXXA Exposure to other specified factors, initial encounter

== ENCOUNTER 2017-12-10 13:30 | Emergency (ER) | payer OTHER ==
[2017-12-10 13:37] VITALS: PULSE 73; RESP 16; TEMP 98.4; O2SAT 97
--- NOTE | 2017-12-10 13:50 | EDPHY ---
H & P Time Seen by Provider: 12/10/17 13:40 HPI/ROS: Chief complaint. Crackling sound in right ear HPI. Patient is 67-year-old male was seen in our emergency department on December 04 and had what appeared to be a foreign body that was unable to be removed in the ear canal against the tympanic membrane of the right ear. Patient use deep rocks and then sought ENT 2 days ago. The foreign body was apparently not there but they felt that there was a slight film on his tympanic membrane which was scraped. Last night he had crackling sensation in the right ear. No change in hearing. No ear pain. Slight brownish drainage to the right ear since Monday. He is unsure about fever. ROS Constitutional. no fever/chills, no weakness Eyes. no problems with vision ENT. Crackling right ear and slight drainage Cardiovascular. no chest pain Respiratory. no shortness of breath, no cough Abdominal. no abdominal pain, no nausea/vomiting, no diarrhea . no problems urinating MS. no calf pain/swelling, no neck/back pain, no joint pain Skin. no rash Lymph. no swollen glands Neuro. no headache, no dizziness, no difficulty walking or with speech Past Medical/Surgical History: Hypertension Social History: Single, nonsmoker, no alcohol Smoking Status: Former smoker Physical Exam: General Appearance: Alert well-developed male no distress vital signs stable. Initial blood pressure 179/110 Eyes: Pupils equal and round no pallor or injection. ENT, both tympanic membranes appear normal. No erythema in either ear. The right ear shows no evidence for foreign body. There is no perforation. No obvious drainage in the canal Respiratory: There are no retractions, lungs are clear to auscultation. Cardiovascular: Regular rate and rhythm. Gastrointestinal: Abdomen is soft and nontender, no masses, bowel sounds normal. Neurological: Awake and alert, sensory and motor exams grossly normal. Skin: Warm and dry, no rashes. Musculoskeletal: Neck is supple nontender. Extremities symmetrical, full range of motion. Psychiatric: Patient is oriented X 3, there is no agitation. Constitutional: Initial Vital Signs Temperature (C) 36.9 C 12/10/17 13:35 Heart Rate 73 12/10/17 13:35 Respiratory Rate 16 12/10/17 13:35 Blood Pressure 179/110 H 12/10/17 13:35 O2 Sat (%) 97 12/10/17 13:35 O2 Delivery Mode Room Air Allergies/Adverse Reactions: pseudoephedrine HCl [From Sudafed] Allergy (Unknown, Verified 12/10/17 13:37) Pt reports vomiting lorazepam [From Ativan] Allergy (Verified 12/10/17 13:37) Pt reports vomiting Home Medications: Medication Instructions Recorded Aspirin EC [Aspirin EC 81 mg (*)] 11/11/17 clonIDINE [Catapres (*)] 12/10/17 hydrALAZINE [Apresoline 50 mg (*)] 12/10/17 Medical Decision Making ED Course/Re-evaluation: Patient and I discussed treatment plan including criteria for return importance of follow-up and further evaluation. He has a follow-up appointment tomorrow and is encouraged to keep that appointment for re-evaluation. He expresses understanding and agreement Differential Diagnosis: I considered otitis media, otitis externa, perforation of the tympanic member Departure - Departure Disposition: Home, Routine, Self-Care Clinical Impression: Otalgia of right ear Condition: Good Instructions: Cerumen Impaction (ED) Additional Instructions: Around been drops using to to 4 drops 4 times daily for the next 2 days. Return for worsening symptoms. Keep your follow-up appointment with ENT tomorrow Referrals: [facility] YOU[facility] [Other] - As per Instructions Viktoria Bashir PA [Physician Block Layer] - 1 day without fail
[2017-12-10 14:04] VITALS: BP 170/108
== END 2017-12-10 14:03 | disposition home or self-care (01) ==
LOC: CED 13:30
DX: H92.01 Otalgia, right ear (principal); I10 Essential (primary) hypertension; Z87.891 Personal history of nicotine dependence; Z79.82 Long term (current) use of aspirin

== ENCOUNTER 2017-12-13 10:36 | Emergency (ER) | payer OTHER ==
[2017-12-13 10:51] VITALS: PULSE 88; RESP 16; TEMP 97.3; O2SAT 99
[2017-12-13 12:28] VITALS: BP 168/104
--- NOTE | 2017-12-13 12:31 | EDPHY ---
H & P Time Seen by Provider: 12/13/17 10:48 HPI/ROS: 67-year-old male with history of malignant hypertension presents requesting medications for difficulty sleeping. Over the last several months he has been seen multiple times in the emergency department and admitted on at least 1 occasion for severe hypertension. He denies chest pain, shortness of breath. He denies new weakness in his arms or legs. He does have a prior history of stroke with a left facial droop that is residual. He states he has an appointment with his primary care physician next week. Review of systems As per HPI General no fever no chills no weakness HEENT no eye pain no eye discharge. No eye redness, no sore throat Respiratory no cough, no shortness of breath Cardiac no chest pain, no peripheral edema GI no abdominal pain, no diarrhea, no constipation, no nausea, no vomiting no flank pain, no hematuria, no dysuria Musculoskeletal no myalgias, no joint pain Heme no easy bruising, no easy bleeding Endo no polyuria, no polydipsia Skin no rashes, no pruritus Neuro no syncope, no dizziness, no headaches Psych is no suicidal ideation, no homicidal ideation Past Medical/Surgical History: Malignant hypertension Prior intracranial bleed CVA with left-sided residual facial droop Social History: Denies alcohol or drug use denies current tobacco use Smoking Status: Former smoker Physical Exam: 67-year-old male alert and oriented no acute distress nontoxic appearance, afebrile Atraumatic Left facial droop Neck supple no JVD Lungs clear to auscultation bilaterally Heart regular rate and rhythm Abdomen nondistended bowel sounds present soft Extremities no cyanosis clubbing or edema Neuro Alert and oriented, no acute deficits Gait intact, speech intact Constitutional: Initial Vital Signs Temperature (C) 36.3 C 12/13/17 10:46 Heart Rate 88 12/13/17 10:46 Respiratory Rate 16 12/13/17 10:46 Blood Pressure 205/130 H 12/13/17 10:46 O2 Sat (%) 99 12/13/17 10:46 O2 Delivery Mode Room Air Allergies/Adverse Reactions: pseudoephedrine HCl [From Sudafed] Allergy (Unknown, Verified 12/13/17 10:53) Pt reports vomiting lorazepam [From Ativan] Allergy (Verified 12/13/17 10:53) Pt reports vomiting Home Medications: Medication Instructions Recorded Aspirin EC [Aspirin EC 81 mg (*)] 11/11/17 clonIDINE [Catapres (*)] 12/10/17 hydrALAZINE [Apresoline 50 mg (*)] 12/10/17 Neomycin/Polymyxin B Sulf/Hc 4 drops OT QID #1 solution 12/13/17 [Gprhmtya-Ximhvcwvx-Wh Ear Soln] Pepcid 20 MG (*) 12/13/17 Medical Decision Making ED Course/Re-evaluation: Patient seen and evaluated requesting medication to help him sleep. During triage was noted that his blood pressure was elevated with a diastolic of 130. He states this morning he took hydralazine 25 mg and clonidine 0.1 mg. He used to be on hydralazine 50 mg it is unclear when that change occurred or if this was personal choice. I advised him that I would not be able to start any sleeping medications at this time that I would want him to discuss this with his primary care physician however given his elevated blood pressure I asked if he would be willing to stay for further treatment with blood pressure medication. He agreed and was given clonidine 0.1 mg p.o. after approximately 1 hr his pressure was 165/100, a marked improvement. He had no complaints other than hoping for sleeping medications on arrival and stated actually after his blood pressure was down he was feeling markedly improved and felt it would be okay to wait and discuss this issue with his primary care physician. He agrees to return to his 50 mg hydralazine dose. Impression Insomnia Hypertension Plan Discharge Follow-up with primary care physician Differential Diagnosis: Differential diagnosis considered but not limited to: Insomnia-likely multifactorial Diastolic blood pressure 130 Malignant hypertension, hypertensive urgency, noncompliance with hypertensive medications, hypertension - Data Points Medications Given: Discontinued Medications Clonidine (Catapres) 0.1 mg PO EDNOW ONE Stop: 12/13/17 11:26 Last Admin: 12/13/17 11:31 Dose: 0.1 mg Departure - Departure Disposition: Home, Routine, Self-Care Clinical Impression: Hypertension Condition: Good Instructions: Hypertension (ED), Insomnia (ED) Referrals: NONE *PRIMARY CARE P,. [Primary Care Provider] - As per Instructions Prescriptions: Neomycin/Polymyxin B Sulf/Hc [Mccedcfc-Fkowufeeg-Bq Ear Soln] 4 drops OT QID #1 solution
== END 2017-12-13 12:35 | disposition home or self-care (01) ==
LOC: CED 10:36
DX: I10 Essential (primary) hypertension (principal); Z79.82 Long term (current) use of aspirin; Z86.73 Personal history of transient ischemic attack (TIA), and cerebral infarction without residual deficits; Z87.891 Personal history of nicotine dependence

== ENCOUNTER 2017-12-16 09:28 | Observation (INO) | payer OTHER ==
--- NOTE | 2017-12-16 09:35 | CPEKG ---
Heart Rate: 94 RR Interval: 638 P-R Interval: 128 QRSD Interval: 128 QT Interval: 388 QTC Interval: 486 P [place]: 76 QRS [place]: 78 T Wave [place]: 20 EKG Severity - ABNORMAL ECG - EKG Impression: SINUS RHYTHM EKG Impression: RIGHT BUNDLE BRANCH BLOCK Electronically Signed By: Ethan Smith 16-Dec-2017 12:47:11
[2017-12-16 10:02] LABS: PLATELET COUNT 184 10^3/uL (150-400)
--- NOTE | 2017-12-16 10:04 | EDPHY ---
H & P Stated Complaint: feels as if heart is fluttering Time Seen by Provider: 12/16/17 09:31 HPI/ROS: This patient complains of a feeling of racing heart this morning. He reports the came on gradually 30 min after taking his medications-clonidine and hydralazine. He feels that his heart was going faster than usual for approximately 30 min. He tried using his blood pressure machine to check his pulse some blood pressure but the blood pressure machine read "error "because, he feels his blood pressure was too high for to function properly. The patient was here 3 days ago for hypertensive urgency treated successfully with a dose of additional clonidine 0.1 mg with marked reduction in his initial BP. He and Dr. rodríguez be discussed the plan to return to his prescribed 50 mg dose of hydralazine 3 times a day rather than 25 mg a day. However he explains that he does not have enough hydralazine currently to make that increased in dosage so he took only 25 mg again this morning, explaining that on Monday he will receive additional hydralazine when he visits his primary care physician at the [facility] [place]. He also complains of ongoing insomnia that he has suffered for the past few months intermittently and reports only sleeping an hour to over the past couple nights. The cause of his insomnia is unclear to him. He denies any recent new stressors. He denies any other cardiac symptoms beyond the feeling of racing heart earlier that has since subsided. He came here by private vehicle for evaluation of his symptoms. ROS: Constitutional: No fevers or chills. No other complaints HEENT: No complaints Neuro: He has baseline facial droop from prior hemorrhagic stroke but denies any new neuro symptoms today. No new focal numbness tingling weakness. No headache. No confusion. Pulmonary: No shortness of breath Cardiovascular: No chest pain. No lightheadedness. No lower extremity swelling. GI: He denies any abdominal pain. No nausea or vomiting. Normal bowel movements. : No hematuria. No flank pain. Psychiatric: He denies any anxiety this morning. Integumentary: No skin rash Endocrine: No complaints Completely symptoms is otherwise negative Source: Patient Exam Limitations: No limitations - Personal History Current Tetanus/Diphtheria Vaccine: Unsure - Medical/Surgical History Hx Asthma: No Hx Chronic Respiratory Disease: No Hx Diabetes: No Hx Cardiac Disease: No Hx Renal Disease: No Hx Cirrhosis: No Hx Alcoholism: Yes Hx HIV/AIDS: No Hx Splenectomy or Spleen Trauma: No Other PMH: hypertension. bladder issues. diverticulitis /surgery. cva 2012 hemmorhagic - Family History Significant Family History: No pertinent family hx - Social History Smoking Status: Former smoker Alcohol Use: None Drug Use: None Additional Social History: He lives with his mother and his sister. He denies any strife currently in his domestic situation. 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 The patient plays multiple instruments including guitar, piano and drums. However he has not been playing any music recently. He has been taking walks. No other exercise He does not use caffeine. - Physical Exam Exam: Vital signs initially notable for hypertension at 190/115. Pulses normal General Appearance: Alert, no distress. Eyes: Pupils equal and round no pallor or injection. ENT, Mouth: Mucous membranes moist. Respiratory: There are no retractions, lungs are clear to auscultation. Cardiovascular: Regular rate and rhythm. No murmur gallop rub. No JVD. No peripheral edema. Gastrointestinal: Abdomen is soft and nontender, no masses, bowel sounds normal. Neurological: GCS of 15. He has baseline facial droop. No other focal deficits. Skin: Warm and dry, no rashes. Musculoskeletal: Neck is supple nontender. Extremities are symmetrical, full range of motion. Psychiatric: Mood: Normal. Affect: Somewhat flat DIFFERENTIAL DIAGNOSIS: After history and physical exam differential diagnosis was considered for essential hypertension currently under treated, insomnia, rule out end-organ injury, ischemic cardiac disease, dysrhythmia Constitutional: Initial Vital Signs Temperature (C) 36.4 C 12/16/17 09:33 Heart Rate 97 12/16/17 09:33 Respiratory Rate 16 12/16/17 09:33 Blood Pressure 189/115 H 12/16/17 09:33 O2 Sat (%) 97 12/16/17 09:33 O2 Delivery Mode Room Air Allergies/Adverse Reactions: pseudoephedrine HCl [From Sudafed] Allergy (Unknown, Verified 12/16/17 09:36) Pt reports vomiting lorazepam [From Ativan] Allergy (Verified 12/16/17 09:36) Pt reports vomiting Home Medications: Medication Instructions Recorded Aspirin EC [Aspirin EC 81 mg (*)] 11/11/17 clonIDINE [Catapres (*)] 12/10/17 hydrALAZINE [Apresoline 50 mg (*)] 12/10/17 Medical Decision Making - Diagnostics EKG Interpretation: 12 lead EKG performed at 9:34 a.m. indication hypertension rule out end-organ injury reveals sinus rhythm at 94 Intervals: P R of 120, QRS of 120, QTC 46 Williams: P of 76, QRS of 70, T of 20 Overall assessment- sinus rhythm with right bundle branch block. When compared to a prior EKG dated 09/09/2017 no significant interval change by my interpretation ED Course/Re-evaluation: EKG, IV, monitor Clonidine p.o. with reduction in blood pressure but still persistent hypertension with diastolic 105-115. Review of the patient's labs reveals evidence of end-organ injury with increased creatinine from his baseline-prior creatinine 1.5 currently 1.7 with elevated BUN as well as slightly elevated troponin. Patient's urinalysis reveals proteinuria Given evidence of end-organ injury (renal and cardiac) patient is treated with additional antihypertensive-hydralazine IV. He responded to this well with blood pressure is 140s over 80s I explained the need for admission to gain better control of his hypertension. Also started a saline bolus to treat his renal insufficiency/azotemia. Review of his prior admission reveals that he was unwilling to try other antihypertensives and ultimately signed out AMA from [facility]. When I discussed the possibility of attempting to transfer him to the [facility] as per his stated desire to prior admission to [facility], he explains that he "needs to be closer to home "and requests admission to [facility] stating that he would attempt better compliance this time. I outlined in some detail his current medication dosages and room to go up significantly with his clonidine and hydralazine dosages. I spoke with Dana Pino, with hospitalist team who accepts this patient for admission to Dr. ifrah Villar. I spoke with Dr. Mario Hoffman-cardiology in consult. He agrees with treatment plan. In summary, this patient has hypertensive emergency due to medication noncompliance resulting in evidence of end-organ injury with slight elevation of troponin and worsening of his renal insufficiency warranting admission for treatment. Patient also has significant insomnia. - Data Points Laboratory Results: Laboratory Results 12/16/17 09:50 12/16/17 09:50 12/16/17 12/16/17 12/16/17 11:20 09:50 09:50 WBC 4.06 10^3/uL 10^3/uL (3.80-9.50) RBC 5.11 10^6/uL 10^6/uL (4.40-6.38) Hgb 16.2 g/dL g/dL (13.7-17.5) Hct 45.8 % % (40.0-51.0) MCV 89.6 fL fL (81.5-99.8) MCH 31.7 pg pg (27.9-34.1) MCHC 35.4 g/dL g/dL (32.4-36.7) RDW 12.6 % % (11.5-15.2) Plt Count 184 10^3/uL 10^3/uL (150-400) MPV 10.3 fL fL (8.7-11.7) Neut % (Auto) 75.9 % H % (39.3-74.2) Lymph % (Auto) 13.8 % L % (15.0-45.0) [place] % (Auto) 7.9 % % (4.5-13.0) Eos % (Auto) 1.7 % % (0.6-7.6) Baso % (Auto) 0.5 % % (0.3-1.7) Nucleat RBC Rel Count 0.0 % % (0.0-0.2) Absolute Neuts (auto) 3.08 10^3/uL 10^3/uL (1.70-6.50) Absolute Lymphs (auto) 0.56 10^3/uL L 10^3/uL (1.00-3.00) Absolute Monos (auto) 0.32 10^3/uL 10^3/uL (0.30-0.80) Absolute Eos (auto) 0.07 10^3/uL 10^3/uL (0.03-0.40) Absolute Basos (auto) 0.02 10^3/uL 10^3/uL (0.02-0.10) Absolute Nucleated RBC 0.00 10^3/uL 10^3/uL (0-0.01) Immature Gran % 0.2 % % (0.0-1.1) Immature Gran # 0.01 10^3/uL 10^3/uL (0.00-0.10) Sodium 144 mEq/L mEq/L (135-145) Potassium 4.3 mEq/L mEq/L (3.5-5.2) Chloride 104 mEq/L mEq/L (97-110) Carbon Dioxide 23 mEq/l mEq/l (22-31) Anion Gap 17 mEq/L H mEq/L (8-16) BUN 38 mg/dL H mg/dL (7-23) Creatinine 1.7 mg/dL H mg/dL (0.7-1.3) Estimated GFR 41 Glucose 125 mg/dL H mg/dL (70-100) Calcium 10.5 mg/dL H mg/dL (8.5-10.4) Troponin I 0.036 ng/mL H ng/mL (0.000-0.034) Urine Color YELLOW Urine Appearance CLEAR Urine pH 6.0 (5.0-7.5) Ur Specific [place] 1.020 (1.002-1.030) Urine Protein 1+ H (NEGATIVE) Urine Ketones NEGATIVE (NEGATIVE) Urine Blood NEGATIVE (NEGATIVE) Urine Nitrate NEGATIVE (NEGATIVE) Urine Bilirubin NEGATIVE (NEGATIVE) Urine Urobilinogen 0.2 EU EU (0.2-1.0) Ur Leukocyte Esterase NEGATIVE (NEGATIVE) Urine RBC NONE SEEN /hpf /hpf (0-3) Urine WBC 0-1 /hpf /hpf (0-3) Ur Epithelial Cells TRACE /lpf /lpf (NONE-1+) Urine Bacteria TRACE /hpf H /hpf (NONE SEEN) Urine Mucus TRACE /lpf /lpf (NONE-1+) Urine Glucose TRACE H (NEGATIVE) Medications Given: Discontinued Medications Clonidine (Catapres) 0.1 mg PO EDNOW ONE Stop: 12/16/17 09:58 Last Admin: 12/16/17 10:13 Dose: 0.1 mg Hydralazine HCl (Apresoline) 10 mg IVP EDNOW ONE Stop: 12/16/17 11:01 Last Admin: 12/16/17 11:03 Dose: 10 mg Sodium Chloride (Ns) 1,000 mls @ 0 mls/hr IV ONCE ONE; Wide Open PRN Reason: Protocol Stop: 12/16/17 10:40 Last Admin: 12/16/17 10:51 Dose: 1,000 mls Departure - Departure Disposition: [facility] Clinical Impression: Hypertensive emergency Insomnia Qualifiers: Insomnia type: primary Qualified Code(s): F51.01 - Primary insomnia Condition: Fair
[2017-12-16] MEDS ORDERED: NS 1,000 ML IV ONE (10:39)
[2017-12-16] MEDS ORDERED: hydrALAZINE 20 MG/ML VIAL IVP ONE (11:00)
[2017-12-16] MEDS ORDERED: ONDANSETRON DISINTEGRATING 4 MG TAB PO PRN (16:13)
[2017-12-16] MEDS ORDERED: ACETAMINOPHEN 325 MG TAB PO PRN (16:13)
[2017-12-16] MEDS ORDERED: ONDANSETRON 4 MG/2 ML VIAL IVP PRN (16:13)
[2017-12-16] MEDS ORDERED: NS 1,000 ML IV SCH (16:15)
[2017-12-16] MEDS ORDERED: ASPIRIN 325 MG TAB PO ONE (16:16)
[2017-12-16] MEDS ORDERED: hydrALAZINE 20 MG/ML VIAL IVP PRN (16:18)
--- NOTE | 2017-12-16 16:25 | PDGENHP ---
History and Physical - Chief Complaint palpitations - History of Present Illness 67 yo male with hx of HTN with recent hospitalization for malignant htn p/w palpitations. Has been having intermitten palpitations for weeks. He thinks they are associated with taking BP meds. Reports BP have been around 130's and he is compliant on his medication regiment. Denies cp, leg edema, sob, neck pain , jaw pain, arm pain. No fever. Does not drink ETOH. Not on thyroid replacement. No hx of cv disease bp found to be elevated in the E.d. given clonidine and Hydralazine with improvement found to have elevated Cr and given IVF trop indeterminate admitted for further w/u - Allergies/Home Medication List Allergies/Adverse Reactions: pseudoephedrine HCl [From Sudafed] Allergy (Unknown, Verified 03/15/16 06:00) I have personally reviewed and updated: family history, medical history, social history, surgical history - Past Medical History Additional medical history: benign essential HTN uncontrolled. 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 diverticulitis s/p ex lap for perf/peritonitis. hx of poor medication compliance. - Surgical History Additional surgical history: ex-lap for peritonitis related to diverticular perforation. - Family History Additional family history: father - HTN - Social History Smoking Status: Former smoker (quit 2010) Tobacco Use: Cigarettes Alcohol Use: Sober (quit drinking early August 2017 after completing rehab program in [place].) Drug Use: None (patient denies any illicit drug use. reports his sister with whom he lives smokes a lot of marijuana. ) Additional social history: COR - FULL. patient desires mother Madison Segal to act as proxy if needed. History Information - Allergies/Home Medication List Allergies/Adverse Reactions: pseudoephedrine HCl [From Sudafed] Allergy (Unknown, Verified 12/16/17 09:36) Pt reports vomiting lorazepam [From Ativan] Allergy (Verified 12/16/17 09:36) Pt reports vomiting Home Medications: Aspirin EC [Aspirin EC 81 mg (*)] 81 mg PO DAILY 11/11/17 [Last Taken 12/16/17] clonIDINE [Catapres (*)] 0.1 mg PO BID 12/10/17 [Last Taken 12/16/17 09:00] hydrALAZINE [Apresoline 50 mg (*)] 50 mg PO TID 12/10/17 [Last Taken 12/16/17 09 :00] I have personally reviewed and updated: medical history, social history - Past Medical History Additional medical history: benign essential HTN uncontrolled. 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 diverticulitis s/p ex lap for perf/peritonitis. hx of poor medication compliance. - Surgical History Additional surgical history: ex-lap for peritonitis related to diverticular perforation. - Family History Additional family history: father - HTN - Social History Smoking Status: Former smoker Alcohol Use: None Drug Use: None Additional social history: COR - FULL. patient desires mother Madison Segal to act as proxy if needed. Review of Systems Review of Systems: ROS: 10pt was reviewed & negative except for what was stated in HPI & below Physical Exam Physical Exam: Temp Pulse Resp BP Pulse Ox 36.6 C 79 16 151/99 H 95 12/16/17 14:05 12/16/17 14:05 12/16/17 14:05 12/16/17 14:05 12/16/17 14:05 Constitutional: no apparent distress Eyes: PERRL, EOMI Ears, Nose, Mouth, Throat: moist mucous membranes Cardiovascular: regular rate and rhythym, No irregularly irregular, No edema Respiratory: no respiratory distress, no rales or rhonchi Gastrointestinal: normoactive bowel sounds, soft, non-tender abdomen Genitourinary: no bladder fullness Skin: warm Musculoskeletal: full muscle strength Neurologic: AAOx3 Psychiatric: interacting appropriately, not anxious, not encephalopathic, thought process linear Lab Data & Imaging Review 12/16/17 09:50 12/16/17 09:50 WBC 4.06 10^3/uL (3.80-9.50) 12/16/17 09:50 RBC 5.11 10^6/uL (4.40-6.38) 12/16/17 09:50 Hgb 16.2 g/dL (13.7-17.5) 12/16/17 09:50 Hct 45.8 % (40.0-51.0) 12/16/17 09:50 MCV 89.6 fL (81.5-99.8) 12/16/17 09:50 MCH 31.7 pg (27.9-34.1) 12/16/17 09:50 MCHC 35.4 g/dL (32.4-36.7) 12/16/17 09:50 RDW 12.6 % (11.5-15.2) 12/16/17 09:50 Plt Count 184 10^3/uL (150-400) 12/16/17 09:50 MPV 10.3 fL (8.7-11.7) 12/16/17 09:50 Neut % (Auto) 75.9 % (39.3-74.2) H 12/16/17 09:50 Lymph % (Auto) 13.8 % (15.0-45.0) L 12/16/17 09:50 [place] % (Auto) 7.9 % (4.5-13.0) 12/16/17 09:50 Eos % (Auto) 1.7 % (0.6-7.6) 12/16/17 09:50 Baso % (Auto) 0.5 % (0.3-1.7) 12/16/17 09:50 Nucleat RBC Rel Count 0.0 % (0.0-0.2) 12/16/17 09:50 Absolute Neuts (auto) 3.08 10^3/uL (1.70-6.50) 12/16/17 09:50 Absolute Lymphs (auto) 0.56 10^3/uL (1.00-3.00) L 12/16/17 09:50 Absolute Monos (auto) 0.32 10^3/uL (0.30-0.80) 12/16/17 09:50 Absolute Eos (auto) 0.07 10^3/uL (0.03-0.40) 12/16/17 09:50 Absolute Basos (auto) 0.02 10^3/uL (0.02-0.10) 12/16/17 09:50 Absolute Nucleated RBC 0.00 10^3/uL (0-0.01) 12/16/17 09:50 Immature Gran % 0.2 % (0.0-1.1) 12/16/17 09:50 Immature Gran # 0.01 10^3/uL (0.00-0.10) 12/16/17 09:50 Sodium 144 mEq/L (135-145) 12/16/17 09:50 Potassium 4.3 mEq/L (3.5-5.2) 12/16/17 09:50 Chloride 104 mEq/L (97-110) 12/16/17 09:50 Carbon Dioxide 23 mEq/l (22-31) 12/16/17 09:50 Anion Gap 17 mEq/L (8-16) H 12/16/17 09:50 BUN 38 mg/dL (7-23) H 12/16/17 09:50 Creatinine 1.7 mg/dL (0.7-1.3) H 12/16/17 09:50 Estimated GFR 41 12/16/17 09:50 Glucose 125 mg/dL (70-100) H 12/16/17 09:50 Calcium 10.5 mg/dL (8.5-10.4) H 12/16/17 09:50 Troponin I 0.036 ng/mL (0.000-0.034) H 12/16/17 09:50 Urine Color YELLOW 12/16/17 11:20 Urine Appearance CLEAR 12/16/17 11:20 Urine pH 6.0 (5.0-7.5) 12/16/17 11:20 Ur Specific [place] 1.020 (1.002-1.030) 12/16/17 11:20 Urine Protein 1+ (NEGATIVE) H 12/16/17 11:20 Urine Ketones NEGATIVE (NEGATIVE) 12/16/17 11:20 Urine Blood NEGATIVE (NEGATIVE) 12/16/17 11:20 Urine Nitrate NEGATIVE (NEGATIVE) 12/16/17 11:20 Urine Bilirubin NEGATIVE (NEGATIVE) 12/16/17 11:20 Urine Urobilinogen 0.2 EU (0.2-1.0) 12/16/17 11:20 Ur Leukocyte Esterase NEGATIVE (NEGATIVE) 12/16/17 11:20 Urine RBC NONE SEEN /hpf (0-3) 12/16/17 11:20 Urine WBC 0-1 /hpf (0-3) 12/16/17 11:20 Ur Epithelial Cells TRACE /lpf (NONE-1+) 12/16/17 11:20 Urine Bacteria TRACE /hpf (NONE SEEN) H 12/16/17 11:20 Urine Mucus TRACE /lpf (NONE-1+) 12/16/17 11:20 Urine Glucose TRACE (NEGATIVE) H 12/16/17 11:20 Assessment & Plan Assessment: #HTN Urgency: -now better -restart home meds -he does not want further adjustments to his meds -monitor #Palpitations -intermittent -monitor on tele -check tte #Indeterminate troponin -serial trops -tte #Acute on chronic renal failure -looks dry -additional IVF -labs in a.m. #Hypercalcemia -IVF #Insomnia -Benadryl PRN per his request DVT proph: Heparin Code: full code
[2017-12-16] MEDS ORDERED: diphenhydrAMINE 25 MG CAP PO PRN (16:28)
[2017-12-16] MEDS ORDERED: traZODone 50 MG TAB PO PRN (21:18)
[2017-12-16] MEDS: HEPARIN 5,000 UNIT/0.5 ML SYR SC SCH (21:36)
[2017-12-17 04:33] LABS: PLATELET COUNT 157 10^3/uL (150-400)
[2017-12-17] MEDS: HEPARIN 5,000 UNIT/0.5 ML SYR SC SCH (06:39)
[2017-12-17] MEDS ORDERED: ASPIRIN EC 81 MG TAB PO SCH (09:00)
[2017-12-17 09:42] VITALS: BP 151/95; PULSE 67; RESP 17; TEMP 97.4; O2SAT 99
--- NOTE | 2017-12-17 10:16 | ASMTCMCOM ---
CM Note CM Note Notes: 12/17/2017 Case Management Note Met w/pt. JULIEN signed. Arranged transportation home. Nephew will stay with pt but does not drive. Provided cab voucher d/t weather and distance from bus station in [place] to home. No other case management needs identified. Case Management d/c poc: home with family support with follow up as directed. Case Management available if needs change. Date Signed: 12/17/2017 10:15 AM Electronically Signed By:Sandra Taylor RN
--- NOTE | 2017-12-17 12:42 | PDDCSUM ---
Discharge Summary Discharge Summary: 67 yo male admitted for HTN urgency. BP meds have been modified. Clonidine increased to TID. No changes to hydralazine. Now overall stable, bp better, will d/c home with f/u with PCP in 2 days. Discharge diagnosis #HTN Urgency: #Palpitations -no events on telemetry -if persists, would consider Op cardiac monitoring #Indeterminate troponin -serial trops c/w normal third trop -no ekg changes -no chest pain -likely from strain from very elevated BP #Acute on chronic renal failure -treated with IVF in the E.D. -he refused his second bag -he looks better overall. -Cr has decreased #Hypercalcemia -resolved with IVF #Insomnia Exam: NAD AAO3 RRR CTA B S/NT/ND MEDS: SEE MED REC TOTAL TIME SPENT ON D/C IS 35 MINS
--- NOTE | 2017-12-17 13:45 | ASDISCHSUM ---
Discharge Information Plan Status:Home with No Needs Medically Cleared to Leave:12/16/2017 Discharge Date:12/17/2017 12:55 PM CM D/C Disposition:Home, Routine, Self-Care ADT D/C Disposition:Home, Routine, Self-Care Projected Discharge Date:12/17/2017 12:55 PM Transportation at D/C:Cab Voucher Discharge Delay Reason: Follow-Up Date:12/17/2017 12:55 PM Discharge Slot: Final Diagnosis: Placement Information Patient Contact Information Contact Name:SUSI Relationship:Mother Address:[address] Work Phone: [facility] Phone: [facility]/Zip Code:[place] [address] Email: Financial Information Financial Class: Primary Plan Desc:MEDICARE INPATIENT Primary Plan Number:[id number] Secondary Plan Desc:[facility] Secondary Plan Number:[id number] Assessment Information [facility] CM Progress Note CM Note CM Note Notes: 12/17/2017 Case Management Note Met w/pt. WILY signed. Arranged transportation home. Nephew will stay with pt but does not drive. Provided cab voucher d/t weather and distance from bus station in [place] to home. No other case management needs identified. Case Management d/c poc: home with family support with follow up as directed. Case Management available if needs change. Date Signed: 12/17/2017 10:15 AM Electronically Signed By:Sandra Taylor RN Intervention Information Intervention Type:*JULIEN-Signed Date of Service:12/17/2017 10:13 AM Patient Type:Observation Staff Member:CHANCE Taylor Hillary Hours: Discipline: Severity: Comment: Intervention Type:Cab Vouchers Date of Service:12/17/2017 10:13 AM Patient Type:Observation Staff Member:CHANCE Taylor Sandra Hours:0.25 Discipline: Severity: Comment:
== END 2017-12-17 12:55 | disposition home or self-care (01) ==
LOC: CED 09:28 → INTOOBSV 11:28 → CEDHOLD 11:28 → F2W 13:24
PROVIDERS: ADMIT Family Medicine; ATTEND Family Medicine
DX: I16.0 Hypertensive urgency (principal); R00.2 Palpitations; N17.9 Acute kidney failure, unspecified; I12.9 Hypertensive chronic kidney disease with stage 1 through stage 4 chronic kidney disease, or unspecified chronic kidney disease; N18.9 Chronic kidney disease, unspecified; E83.52 Hypercalcemia; I69.392 Facial weakness following cerebral infarction; R79.89 Other specified abnormal findings of blood chemistry; Z91.14 Patient's other noncompliance with medication regimen; Z87.891 Personal history of nicotine dependence
CPT/HCPCS: 93005; G0378; J0360; 80048-PO; 81003-PO; 81015-PO; 84484-PO; 85025-PO

== ENCOUNTER 2018-01-13 08:02 | Emergency (ER) | payer OTHER ==
[2018-01-13 08:14] VITALS: RESP 18
--- NOTE | 2018-01-13 08:41 | EDPHY ---
H & P Stated Complaint: UNABLE TO SLEEP X DAYS AND "LOW BP" Time Seen by Provider: 01/13/18 08:20 HPI/ROS: CHIEF COMPLAINT: Insomnia HISTORY OF PRESENT ILLNESS: This is a 67-year-old male with history of malignant hypertension, poorly controlled partially due to medication noncompliance, who presents complaining that he has been unable to sleep for the last 3 nights. In the past he has tried melatonin but this gave him bad dreams so he stopped using this medication. Last night he tried Tylenol p.m. Without relief. He also drank a beer. He had a total of 2 hr sleep. He has been seen in the emergency department in the past with a similar complaint. Of note, he called the emergency department prior to presenting complaining that his blood pressure was low. He reports a blood pressure reading of 84/60 at home this morning. He was feeling fine but was concerned about this low reading. He has had multiple hospitalizations for hypertensive urgency/ emergency. His most recent hospitalization was 12/16/2017, with a previous admission 11/10/2017. He has also been admitted at other hospitals for hypertension. He has had a hemorrhagic CVA secondary to his hypertension. The time of his discharge in November he will to take clonidine 0.1 mg three times daily and hydralazine 50 mg three times daily. He tells me that he is taking both of these medications once daily, in the morning. He believes that taking his antihypertensives as prescribed makes him feel weak. He sees Dr. Looney and at his last visit, about a month ago, he believes that his systolic blood pressure was around 130. Yesterday his systolic blood pressure was 128. Although he was asked brings blood pressure cuff with him this morning, he did not do so. He denies headache, visual changes, confusion, difficulty with speech, new numbness, new weakness, hematuria, chest pain, and shortness of breath. This is his 7th emergency department visit this year. He tells me that he has an appointment with his primary care physician and with Cardiology on January 22, 9 days hence. REVIEW OF SYSTEMS: A ten point review of systems was performed and is negative with the exception of the items mentioned in the HPI. Past medical history: 1. Hypertension 2. Hemorrhagic CVA secondary to hypertension 3. Diverticulitis status post exploratory laparotomy Past surgical history: Exploratory laparotomy Family history: Hypertension Social history: He lives with his mother and sister. He quit smoking cigarettes about 10 years ago. Has a history of alcohol abuse but now drinks alcohol rarely. General Appearance: Alert. Vital signs reviewed. Blood pressure 215/129, heart rate 75, respiratory rate 18, room air oxygen such 96%, temperature 36.4 degrees centigrade. Eyes: Pupils equal and round, no conjunctival injection, no discharge. Anicteric. ENT, Mouth: Mucous membranes are moist, no oropharyngeal erythema or edema. Missing dentition. Neck: No lymphadenopathy, supple. No carotid bruit. Respiratory: Lungs are clear to auscultation; no wheezes, rales, or rhonchi. Cardiovascular: Regular rate and rhythm; no murmur, rub, or gallop. Gastrointestinal: Abdomen is soft and nontender, no masses or organomegaly, bowel sounds normal. Skin: Warm and dry, no rashes on exposed skin, normal color. Back: Nontender to palpation over the thoracolumbar spine. Extremities: No lower extremity edema, no calf tenderness or swelling. Neurological: Alert and oriented. Moving all four extremities easily and equally. Cranial nerves II through XII are examined and are intact (visual acuity not tested). Strength is 5 over 5 bilaterally with testing of all major motor groups. Sensation is intact to light touch over all 4 extremities. Deep tendon reflexes are 2+ in the biceps and knees bilaterally. Gait is normal. [id number] is performed accurately. No truncal ataxia. Psychiatric: Normal affect. - Personal History Current Tetanus Diphtheria and Acellular Pertussis (TDAP): Yes - Medical/Surgical History Hx Asthma: No Hx Chronic Respiratory Disease: No Hx Diabetes: No Hx Cardiac Disease: No Hx Renal Disease: No Hx Cirrhosis: No Hx Alcoholism: Yes Hx HIV/AIDS: No Hx Splenectomy or Spleen Trauma: No Other PMH: hypertension. bladder issues. diverticulitis /surgery. cva 2012 hemmorhagic - Social History Smoking Status: Former smoker Constitutional: Initial Vital Signs Temperature (C) 36.4 C 01/13/18 08:10 Heart Rate 75 01/13/18 08:10 Respiratory Rate 18 01/13/18 08:10 Blood Pressure 215/129 H 01/13/18 08:10 O2 Sat (%) 96 01/13/18 08:10 O2 Delivery Mode Room Air Allergies/Adverse Reactions: pseudoephedrine HCl [From Sudafed] Allergy (Unknown, Verified 01/13/18 08:10) Pt reports vomiting lorazepam [From Ativan] Allergy (Verified 01/13/18 08:10) Pt reports vomiting Home Medications: Medication Instructions Recorded Aspirin EC [Aspirin EC 81 mg (*)] 81 mg PO DAILY 11/11/17 clonIDINE [Catapres (*)] 0.1 mg PO TID #90 tab 12/17/17 hydrALAZINE [Apresoline 50 mg (*)] 50 mg PO TID #90 tab 12/17/17 Medical Decision Making ED Course/Re-evaluation: Patient's chief complaint today is insomnia. However, he is noted to be hypertensive and noncompliant with his antihypertensive medications. Repeat blood pressure in the emergency department was 214/128 measured in the left arm. Initial blood pressure, measured in the right arm, was 215/129. He is asymptomatic. He is not interested in hospitalization or having his blood pressure addressed but does agree to take clonidine 0.1 mg in the emergency department. He also tells me that he will return to the prescribed TID dosing of his antihypertensives. In the past he has not been compliant so I am not overly optimistic. I spoke with the patient at some length about the risks of hypertension and the importance of taking his medication. I recommended additional workup in the emergency department including EKG and blood work to look for damage to his kidneys and his heart. He has a normal neurologic exam and I do not suspect stroke at this time. However, given his severe hypertension, I think that this is asymptomatic hypertensive urgency. He was offered additional emergency department workup and also offered hospitalization. He declines. He is able to verbalize to me the risks of high blood pressure, including stroke, heart attack, and kidney injury. He is capable of making his own medical decisions and chooses to leave the emergency department. He signed a form stating that he is leaving against medical advice. He understands that he can return at any time. His main concern today is for his ongoing insomnia, not for his blood pressure. Differential Diagnosis: I suspect that his insomnia is multifactorial. I considered hypertensive emergency, hypertensive urgency, medication noncompliance. In relation to his hypertension I considered CVA, myocardial ischemia, and renal injury. - Data Points Medications Given: Discontinued Medications Clonidine (Catapres) 0.1 mg PO EDNOW ONE Stop: 01/13/18 08:46 Last Admin: 01/13/18 08:50 Dose: 0.1 mg Departure - Departure Disposition: Against Medical Advice Clinical Impression: Asymptomatic hypertensive urgency Insomnia Qualifiers: Insomnia type: unspecified Qualified Code(s): G47.00 - Insomnia, unspecified Condition: Good Instructions: Hypertension (ED), Insomnia (ED) Additional Instructions: Please take your blood pressure medications as prescribed. When you left the hospital on December 16 you were prescribed clonidine 0.1 mg orally 3 times daily and hydralazine 50 mg orally 3 times daily. I recommend that you resume this dosing. Your blood pressure today in the emergency department was 215/129 when you arrived. You were given a dose of clonidine 0.1 mg. You can return to the emergency department at any time. If you do so, you should bring her home blood pressure machine. Take it to your clinic appointments also. You might try Benadryl, diphenhydramine, to see if this helps you fall asleep. You should take 25-50 mg (1-2 pills) at bedtime. Do not take more than this. Do not take this with alcohol. You can buy this [id number] at any drug store. Keep your appointments on January [address] Rodriguez and with Dr. Navarrete. Referrals: Mario Rodriguez DO [Doctor of Osteopathy] - As per Instructions
[2018-01-13 10:14] VITALS: TEMP 97.3
[2018-01-13 10:30] LABS: PLATELET COUNT 178 10^3/uL (150-400)
--- NOTE | 2018-01-13 10:32 | CPEKG ---
Heart Rate: 59 RR Interval: 1017 P-R Interval: 152 QRSD Interval: 130 QT Interval: 468 QTC Interval: 464 P [place]: 59 QRS [place]: 63 T Wave [place]: 159 EKG Severity - ABNORMAL ECG - EKG Impression: SINUS RHYTHM EKG Impression: RIGHT BUNDLE BRANCH BLOCK Electronically Signed By: Mason Silverio 15-Jan-2018 12:26:47
[2018-01-13] MEDS ORDERED: NS 500 ML IV ONE (11:56)
[2018-01-13 13:10] VITALS: BP 174/95; PULSE 57; O2SAT 96
--- NOTE | 2018-01-13 13:20 | EDPHY ---
DONOVAN Addendum - Addendum .: This patient was evaluated me by me in the emergency department and returned shortly after his departure, on the urging of his mother and sister. He was evaluated for hypertensive urgency and offered hospitalization, which he initially refused, signing out AMA. He had received clonidine 0.1 mg p.o.. On his re-arrival in the department his blood pressure was 215/129. He was observed in the department for 3 more hours with subsequent blood pressure readings of 154/100 and 174/95. He had no headache, no chest pain, no shortness of breath. I do not think that there is a significant difference in his kidney function, compared to his last visit. He does have proteinuria and elevated creatinine, neither of which are new findings. He is not anxious to be hospitalized and since his blood pressures have improved I think that he can return home to follow up as an outpatient. Compliance has long been an issue for him in terms of his hypertension. He expresses understanding of the importance of taking his antihypertensives as prescribed. He states that he will follow up and that he has an appointment with his PCP and with the fur blender this coming week. I am recommending that he move this appointment up. We reviewed the danger signs that should prompt him to return immediately.
== END 2018-01-13 13:24 | disposition left against medical advice (07) ==
LOC: CED 08:02
DX: G47.00 Insomnia, unspecified (principal); I16.0 Hypertensive urgency; E86.9 Volume depletion, unspecified; I10 Essential (primary) hypertension; Z79.82 Long term (current) use of aspirin; Z86.73 Personal history of transient ischemic attack (TIA), and cerebral infarction without residual deficits; Z87.891 Personal history of nicotine dependence
CPT/HCPCS: 80053-PO; 81003-PO; 81015-PO; 84443-PO; 84484-PO; 85025-PO

== ENCOUNTER 2018-01-17 23:58 | Emergency (ER) | payer OTHER ==
[2018-01-18 00:09] VITALS: RESP 18; TEMP 97.7
--- NOTE | 2018-01-18 00:10 | EDPHY ---
H & P Time Seen by Provider: 01/18/18 00:00 HPI/ROS: 67-year-old male with history of hypertension and a history of multiple admissions for hypertensive urgency secondary to noncompliance presents today complaining of an episode of rapid heartbeat. He states he was feeling a little congested and decided to take some Robitussin which she believes is old, after taking the Robitussin he was lying down when he noticed his heart beating rapidly. Nobody was at home at that time so he knocked on the neighbor's door and had them bring him here. No chest pain, no shortness of breath no diaphoresis. No numbness in his arms or legs. Review of systems General no fever no chills no weakness HEENT no eye pain no eye discharge. No eye redness, no sore throat Respiratory no cough, no shortness of breath Cardiac no chest pain, no peripheral edema, positive palpitations GI no abdominal pain, no diarrhea, no constipation, no nausea, no vomiting no flank pain, no hematuria, no dysuria Musculoskeletal no myalgias, no joint pain Heme no easy bruising, no easy bleeding Endo no polyuria, no polydipsia Skin no rashes, no pruritus Neuro no syncope, no dizziness, no headaches Psych is no suicidal ideation, no homicidal ideation Past Medical/Surgical History: Hypertension Social History: Denies alcohol or drug use Smoking Status: Former smoker Physical Exam: 67-year-old male alert and oriented no acute distress nontoxic appearance afebrile HEENT atraumatic normocephalic, extraocular muscles intact, anicteric Oropharynx negative for erythema negative exudate, tolerating her own secretions Neck supple no meningismus Lungs clear to auscultation bilaterally Heart regular rate and rhythm without murmur rub or gallop Abdomen nondistended normoactive bowel sounds soft nontender Back no CVA tenderness, no step-offs, no spinal tenderness Extremities no cyanosis clubbing or edema Neuro alert and oriented, no focal deficits Constitutional: Initial Vital Signs Temperature (C) 36.5 C 01/18/18 00:06 Heart Rate 86 01/18/18 00:06 Respiratory Rate 18 01/18/18 00:06 Blood Pressure 158/88 H 01/18/18 00:06 O2 Sat (%) 93 01/18/18 00:06 O2 Delivery Mode Room Air Allergies/Adverse Reactions: pseudoephedrine HCl [From Sudafed] Allergy (Unknown, Verified 01/13/18 08:10) Pt reports vomiting lorazepam [From Ativan] Allergy (Verified 01/13/18 08:10) Pt reports vomiting Home Medications: Medication Instructions Recorded Aspirin EC [Aspirin EC 81 mg (*)] 81 mg PO DAILY 11/11/17 clonIDINE [Catapres (*)] 0.1 mg PO TID #90 tab 12/17/17 hydrALAZINE [Apresoline 50 mg (*)] 50 mg PO TID #90 tab 12/17/17 Medical Decision Making ED Course/Re-evaluation: Patient seen and evaluated for brief episode of heart palpitations Blood pressure stable EKG normal sinus rhythm rate 73 right bundle branch block no acute changes from prior EKG Impression Palpitations Possibly secondary to Robitussin however more likely secondary to anxiety Plan Discharge home Advise follow up with primary care physician Return as needed Differential Diagnosis: Differential diagnosis considered but not limited to Palpitations, dysrhythmia, atrial fibrillation, atrial flutter, ventricular tachycardia, SVT, anxiety Departure - Departure Disposition: Home, Routine, Self-Care Clinical Impression: Palpitations Condition: Good Instructions: Heart Palpitations (ED) Additional Instructions: Follow up with your primary care .
--- NOTE | 2018-01-18 00:13 | CPEKG ---
Heart Rate: 73 RR Interval: 822 P-R Interval: 140 QRSD Interval: 134 QT Interval: 408 QTC Interval: 450 P [place]: 74 QRS [place]: 77 EKG Severity - ABNORMAL ECG - EKG Impression: SINUS RHYTHM EKG Impression: RIGHT BUNDLE BRANCH BLOCK Electronically Signed By: Mason Silverio 19-Jan-2018 09:27:41
[2018-01-18 00:31] VITALS: BP 139/89; PULSE 67; O2SAT 95
== END 2018-01-18 00:45 | disposition home or self-care (01) ==
LOC: CED 23:58
DX: R00.2 Palpitations (principal); I10 Essential (primary) hypertension; Z87.891 Personal history of nicotine dependence; Z79.82 Long term (current) use of aspirin

== ENCOUNTER 2018-01-18 07:23 | Inpatient (IN) | payer OTHER ==
--- NOTE | 2018-01-18 07:34 | EDPHY ---
H & P Time Seen by Provider: 01/18/18 07:28 HPI/ROS: HPI High blood pressure, palpitations, chest tightness. 67-year-old male on foot. This patient has a frequent history of visits to the emergency department and admission to our hospital for hypertension related complaints. He states that he is compliant with his medications which include hydralazine and clonidine. He was seen in our emergency department at approximately midnight last night. His complaint at that time was that he took some Robitussin cough syrup for congestion after doing this he stated that he started having palpitations which she describes as his heart beating rapidly. He had an unremarkable EKG with no changes from previous. He was discharged home after his evaluation in the emergency department. He states that he took his blood pressure medications as above at approximately 1:00 a.m.. He returns to the emergency department stating that his blood pressure is now high and he is also complaining of continued palpitations and chest tightness and aching on the left upper side of his chest which started at 2:00 a.m.. He also reports having some associated shortness of breath but states this is better now. ROS: Constitutional: No fever, no chills. No weakness. Eyes: No discharge. No changes in vision. ENT: No sore throat. No nasal congestion or rhinorrhea. Respiratory: No cough. As above. Cardiac: As above. Gastrointestinal: No abdominal pain, no vomiting, no diarrhea. Genitourinary: No hematuria. No dysuria or increased frequency with urination. Musculoskeletal: No back pain. No neck pain. No myalgias or arthralgias. Skin: No rashes. Neurological: No headache. No focal weakness or altered sensation. 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 Social history: Former smoker. Denies alcohol. No IV drugs or street drugs. Physical Exam: General Appearance: Alert, mildly anxious. This patient is responding to questions appropriately and in full sentences. This patient appears well- hydrated and well-nourished. Eyes: Pupils equal and round no pallor or injection. No lid edema, erythema or injection. Respiratory: There are no retractions, lungs are clear to auscultation with good air movement bilaterally. Cardiovascular: Regular rate and rhythm. No murmur. Gastrointestinal: Abdomen is soft and nontender, no masses, bowel sounds normal. No focal tenderness at McBurney's point. No Peterson sign. Neurological: Motor sensory function is grossly intact. Cranial nerves are normal. Gait is normal. Skin: Warm and dry, no rashes. Musculoskeletal: Neck is supple and nontender. Extremities are symmetrical. All joints range without pain or impingement. Psychiatric: No agitation. No depression. Database: EKG: EKG time is 7:39 a.m.; EKG shows a narrow complex normal sinus rhythm with a ventricular rate of 83. Underlying right bundle branch block noted. The GA, QT intervals are within normal limits. There are no ST-T wave changes indicative of ischemic or injury pattern. No evidence of right heart strain. No change from previous EKG 12/18/2017. Interpreted by me. Imaging: Chest x-ray AP portable; the cardiac mediastinal silhouette is unremarkable. No evidence of infiltrate or pneumothorax. No acute cardiopulmonary disease process noted. Interpreted by me. Procedures: Emergency department course: Vital signs reviewed, initial blood pressure 192/122. Patient afebrile and vital signs otherwise unremarkable. EKG obtained and reviewed by myself. Patient given 324 mg of chewed aspirin. Patient given 0.1 mg of oral clonidine per his usual dosing regiment. 8:25 a.m., patient re-evaluated. Resting comfortably at this time. Blood pressure currently 182/114. Vital signs otherwise normal. No chest pain or shortness of breath at this time. 8:40 a.m., patient re-evaluated. Blood pressure currently 192/111. She will be given 5 mg of IV hydralazine. This will be repeated in 20 min as needed for continued blood pressure control. Results of his diagnostic workup discussed with him. This patient's reason for being here is probably related to medication noncompliance and partially anxiety driven. However, his blood pressure has been difficult to control and his development of chest discomfort early this morning is concerning. Hospitalist paged for admission. 8:45 a.m., spoke with hospitalist. Patient accepted for admission under the care of Dr. Antoinette Tam. 9:15 a.m., patient resting comfortably, blood pressure currently 164/107. 9:30 a.m., blood pressure currently 162/97. He denies shortness of breath or chest pain at this time. Patient transferred in stable condition. Differential Diagnosis: The differential diagnosis on this patient includes but is not limited to hypertensive urgency, hypertensive emergency, acute coronary syndrome, anxiety, noncompliance with antihypertensive medication. This represents a partial list of diagnoses considered. These considerations are based on history, physical exam, past history, reassessment and diagnostic testing. Smoking Status: Former smoker Constitutional: Initial Vital Signs Temperature (C) 36.3 C 01/18/18 07:30 Heart Rate 101 H 01/18/18 07:30 Respiratory Rate 16 01/18/18 07:30 Blood Pressure 192/122 H 01/18/18 07:30 O2 Sat (%) 97 01/18/18 07:30 O2 Delivery Mode Nasal Cannula Allergies/Adverse Reactions: pseudoephedrine HCl [From Sudafed] Allergy (Unknown, Verified 01/18/18 07:29) Pt reports vomiting lorazepam [From Ativan] Allergy (Verified 01/18/18 07:29) Pt reports vomiting Home Medications: Medication Instructions Recorded Aspirin EC [Aspirin EC 81 mg (*)] 81 mg PO DAILY 11/11/17 clonIDINE [Catapres (*)] 0.1 mg PO TID #90 tab 12/17/17 hydrALAZINE [Apresoline 50 mg (*)] 50 mg PO TID #90 tab 12/17/17 Medical Decision Making - Diagnostics Imaging Results: Imaging Impressions Chest X-Ray 01/18/18 07:41 Impression: No acute abnormality, or substantial change from 11/10/2017. - Data Points Laboratory Results: Laboratory Results 01/18/18 07:48 01/18/18 07:48 01/18/18 01/18/18 01/18/18 08:45 07:48 07:48 WBC RBC Hgb Hct MCV MCH MCHC RDW Plt Count MPV Neut % (Auto) Lymph % (Auto) Ada % (Auto) Eos % (Auto) Baso % (Auto) Nucleat RBC Rel Count Absolute Neuts (auto) Absolute Lymphs (auto) Absolute Monos (auto) Absolute Eos (auto) Absolute Basos (auto) Absolute Nucleated RBC Immature Gran % Immature Gran # PT 12.9 SEC SEC (12.0-15.0) INR 0.98 (0.83-1.16) APTT 34.6 SEC SEC (23.0-38.0) Sodium 143 mEq/L mEq/L (135-145) Potassium 4.1 mEq/L mEq/L (3.5-5.2) Chloride 102 mEq/L mEq/L (97-110) Carbon Dioxide 23 mEq/l mEq/l (22-31) Anion Gap 18 mEq/L H mEq/L (8-16) BUN 23 mg/dL mg/dL (7-23) Creatinine 1.2 mg/dL mg/dL (0.7-1.3) Estimated GFR > 60 Glucose 114 mg/dL H mg/dL (70-100) Calcium 10.2 mg/dL mg/dL (8.5-10.4) Creatine Kinase 41 IU/L IU/L (0-224) CK-MB (CK-2) Fraction 2.26 ng/mL ng/mL (0.00-4.55) Troponin I 0.018 ng/mL ng/mL (0.000-0.034) TSH 0.551 uIU/mL uIU/mL (0.465-4.680) Urine Color YELLOW Urine Appearance CLEAR Urine pH 8.0 H (5.0-7.5) Ur Specific [place] 1.015 (1.002-1.030) Urine Protein 1+ H (NEGATIVE) Urine Ketones NEGATIVE (NEGATIVE) Urine Blood NEGATIVE (NEGATIVE) Urine Nitrate NEGATIVE (NEGATIVE) Urine Bilirubin NEGATIVE (NEGATIVE) Urine Urobilinogen 0.2 EU EU (0.2-1.0) Ur Leukocyte Esterase NEGATIVE (NEGATIVE) Urine RBC NONE SEEN /hpf /hpf (0-3) Urine WBC 0-1 /hpf /hpf (0-3) Ur Epithelial Cells NONE SEEN /lpf /lpf (NONE-1+) Urine Mucus TRACE /lpf /lpf (NONE-1+) Urine Glucose TRACE H (NEGATIVE) 01/18/18 07:48 WBC 4.23 10^3/uL 10^3/uL (3.80-9.50) RBC 5.43 10^6/uL 10^6/uL (4.40-6.38) Hgb 17.3 g/dL g/dL (13.7-17.5) Hct 48.4 % % (40.0-51.0) MCV 89.1 fL fL (81.5-99.8) MCH 31.9 pg pg (27.9-34.1) MCHC 35.7 g/dL g/dL (32.4-36.7) RDW 13.2 % % (11.5-15.2) Plt Count 181 10^3/uL 10^3/uL (150-400) MPV 10.1 fL fL (8.7-11.7) Neut % (Auto) 65.9 % % (39.3-74.2) Lymph % (Auto) 20.8 % % (15.0-45.0) Ada % (Auto) 9.0 % % (4.5-13.0) Eos % (Auto) 3.3 % % (0.6-7.6) Baso % (Auto) 0.5 % % (0.3-1.7) Nucleat RBC Rel Count 0.0 % % (0.0-0.2) Absolute Neuts (auto) 2.79 10^3/uL 10^3/uL (1.70-6.50) Absolute Lymphs (auto) 0.88 10^3/uL L 10^3/uL (1.00-3.00) Absolute Monos (auto) 0.38 10^3/uL 10^3/uL (0.30-0.80) Absolute Eos (auto) 0.14 10^3/uL 10^3/uL (0.03-0.40) Absolute Basos (auto) 0.02 10^3/uL 10^3/uL (0.02-0.10) Absolute Nucleated RBC 0.00 10^3/uL 10^3/uL (0-0.01) Immature Gran % 0.5 % % (0.0-1.1) Immature Gran # 0.02 10^3/uL 10^3/uL (0.00-0.10) PT INR APTT Sodium Potassium Chloride Carbon Dioxide Anion Gap BUN Creatinine Estimated GFR Glucose Calcium Creatine Kinase CK-MB (CK-2) Fraction Troponin I TSH Urine Color Urine Appearance Urine pH Ur Specific [place] Urine Protein Urine Ketones Urine Blood Urine Nitrate Urine Bilirubin Urine Urobilinogen Ur Leukocyte Esterase Urine RBC Urine WBC Ur Epithelial Cells Urine Mucus Urine Glucose Medications Given: Discontinued Medications Aspirin (Aspirin) 324 mg PO EDNOW ONE Stop: 01/18/18 07:42 Last Admin: 01/18/18 07:44 Dose: 324 mg Clonidine (Catapres) 0.1 mg PO EDNOW ONE Stop: 01/18/18 07:54 Last Admin: 01/18/18 08:01 Dose: 0.1 mg Hydralazine HCl (Apresoline) 5 mg IVP EDNOW ONE Stop: 01/18/18 08:33 Last Admin: 01/18/18 08:49 Dose: 5 mg Departure - Departure Disposition: [facility] Acute Clinical Impression: Chest discomfort, Uncontrolled hypertension
[2018-01-18] MEDS ORDERED: ASPIRIN 81 MG CHEWABLE TAB PO ONE (07:41)
--- NOTE | 2018-01-18 07:41 | CPEKG ---
Heart Rate: 83 RR Interval: 723 P-R Interval: 152 QRSD Interval: 130 QT Interval: 408 QTC Interval: 480 P [place]: 69 QRS [place]: 73 T Wave [place]: 122 EKG Severity - ABNORMAL ECG - EKG Impression: SINUS RHYTHM EKG Impression: RIGHT BUNDLE BRANCH BLOCK Electronically Signed By: Branden De Luna 18-Jan-2018 09:30:50
[2018-01-18 07:55] LABS: PLATELET COUNT 181 10^3/uL (150-400)
[2018-01-18 08:12] LABS: INR 0.98 (0.83-1.16); PROTIME(PATIENT) 12.9 SEC (12.0-15.0)
[2018-01-18 08:14] LABS: CREATINE KINASE 41 IU/L (0-224)
[2018-01-18] MEDS ORDERED: hydrALAZINE 20 MG/ML VIAL IVP ONE (08:32)
[2018-01-18] MEDS ORDERED: MAGNESIUM HYDROXIDE 30 ML UDCUP PO PRN (11:53)
[2018-01-18] MEDS ORDERED: BISACODYL 10 MG SUPP PR PRN (11:53)
[2018-01-18] MEDS ORDERED: POLYETHYLENE GLYCOL 3350 17 GM PKT PO PRN (11:53)
[2018-01-18] MEDS ORDERED: LACTULOSE 20 GM/30 ML UDCUP PO PRN (11:53)
[2018-01-18] MEDS ORDERED: ONDANSETRON 4 MG/2 ML VIAL IVP PRN (15:12)
[2018-01-18] MEDS ORDERED: NITROGLYCERIN 0.4 MG BTL SL PRN (15:14)
--- NOTE | 2018-01-18 15:45 | GHP ---
[f rep st] HISTORY AND PHYSICAL DATE OF ADMISSION: 01/18/2018 CHIEF COMPLAINT: Insomnia. HISTORY: The patient is a 67-year-old man with a long-standing history of hypertension with noncompl iance with medications. He had a hemorrhagic stroke as a complication of hypertension in 2011. He c lexie to the emergency room last night after taking some Robitussin for a sore throat. This caused pal pitations, and he came to the ER. His EKG was negative, and he was discharged. He has a long-standi ng history of palpitations with negative cardiac monitoring. He re-presented to the hospital, now co mplaining of insomnia. He is being admitted for uncontrolled hypertension. He denies any medication noncompliance. States he has a blood pressure cuff at home. Monitor systolic blood pressure is typ ically between 130 and 140, but has now blood pressures that have been extremely elevated, which he a ttributes to the Robitussin dose. He complains of left-sided chest pressure starting this morning, w ithout shortness of breath or radiation. He recently had a stress test at [facility] that was n egative. He was outside [employer] snow the last 2 days, which may have contributed. The patient has lost 50 pounds since August 27. Initially said it was unintentional, but then he adm itted that he changed his diet to a cardiac diet. He denies any abdominal pain or nausea/vomiting. The patient's chief complaint when I am seeing him is of insomnia, hoping that we will be able to hel p him out with that here. Starting beginning of August, he has just been unable to sleep. He canno t even get to sleep and will often stay up a whole night the night before to make himself extra tired so he can sleep the next night. He has tried Tylenol PM, trazodone, and melatonin without any resul t. PAST MEDICAL HISTORY: 1. Hypertension, with medication noncompliance. 2. Hemorrhagic stroke secondary to hypertension, 2011, with residual left facial droop. 3. Diverticular disease with perforation and peritonitis. 4. Chronic kidney disease. MEDICATIONS: Please see computerized record for full detailed list. ALLERGIES: Pseudoephedrine and lorazepam. SOCIAL HISTORY: Quit smoking in 2000, quit alcohol in August 2017. He has been in alcohol rehab in the past. He lives with his mom and sister. Currently on disability. Reports to have a Ph.D. in [employer] [place] REVIEW OF SYSTEMS: Complete review of systems obtained. Review of systems negative regarding consti tutional, HEENT, GI, pulmonary, , hematology, skin, musculoskeletal, endocrine, psych, except for p ositives and negatives noted in HPI. FAMILY HISTORY: Reviewed, noncontributory to presenting complaint. PHYSICAL EXAMINATION: GENERAL: Well-developed, well-nourished male, in no distress. VITAL SIGNS: Temperature 37.1, pulse 65, blood pressure 161/105, saturating 99% on room air. HEENT: Normal conju nctivae. Pupils reactive to light. ENT: Normal ears and nose. Hearing intact. Normal teeth. Hortencia pharynx moist. NECK: Trachea midline. No thyromegaly. CHEST: Normal respiratory effort. Lungs c lear to auscultation bilaterally. CARDIOVASCULAR: Regular rhythm. No murmur. No lower extremity e steve. ABDOMEN: Soft, nontender. No hepatosplenomegaly. SKIN: Warm, dry, intact. No rash. MUSCU LOSKELETAL: No cyanosis or clubbing. Strength 5/5 upper and lower extremities. NEURO: Cranial ner ves intact. Normal sensation to light touch. PSYCH: Alert and oriented x3. Normal mood and affect. Normal judgment and insight. Normal memory. LABORATORY DATA: White count 4.23, hematocrit 48.4, platelets 181. Sodium 143, potassium 4.1, chlor jazmyn 102, bicarb 23, BUN 22, creatinine 1.2, . Troponins negative. TSH is 0.5. INR 0.98. Urinalysis is negative. EKG reviewed by me. My personal interpretation is normal sinus rhythm with a right bundle branch block. Chest x-ray is negative. ASSESSMENT/PLAN: 1. Hypertensive urgency. Blood pressure is very elevated on presentation, although this is not atyp ical for him. He has a long-standing history with medication noncompliance, as well as intolerable s jazmyn effects to many of the medications tried in the past. He currently denies problems taking hydral azine and clonidine and denies any noncompliance with this regimen. He does not desire any changes i n his blood pressure medications at this time. Will administer home medications as prescribed while in the hospital and monitor for effect. 2. Chest pain. He recently had a negative stress test. We will check some troponins. I suspect th is may be musculoskeletal chest wall strain due to his recent shoveling. 3. Insomnia. He has attempted melatonin, trazodone and Benadryl in the past. He needs outpatient f ollowup with primary care. 4. Chronic kidney disease. This is at baseline. CODE STATUS: Full. ADMISSION STATUS: Will admit to observation. Re-evaluate tomorrow regarding ongoing need for hospit alization. DVT PROPHYLAXIS: He is high risk. Will place him on subcu Lovenox. /[id number]/MODL
[2018-01-18] MEDS: METOPROLOL TARTRATE 5 MG/5 ML INJ IVP PRN (18:12)
[2018-01-19] MEDS: METOPROLOL TARTRATE 5 MG/5 ML INJ IVP PRN (06:04)
[2018-01-19] MEDS: SENNOSIDES/DOCUSATE SODIUM TAB PO SCH ×2 (07:29→08:07)
[2018-01-19] MEDS: ENOXAPARIN 40 MG/0.4 ML SYR SC SCH (08:03)
[2018-01-19] MEDS: ASPIRIN EC 81 MG TAB PO SCH (08:04)
[2018-01-19] MEDS: amLODIPine BESYLATE 5 MG TAB PO SCH (09:31)
--- NOTE | 2018-01-19 12:26 | ASMTCASEMG ---
Living Arrangements What is your living Answers: With One Parent arrangement? Who do you live with? Type Of Residence What kind of residence do Answers: House you live in? Discharge Plan Comments Coordination Status Comments Notes: Pts case discussed in morning rounds. Pt has a hx of leaving AMA. Pt is a 67 y/o man admitted for chest pain and uncontrolled hypertension. Therapies are recommending home independent. CM met w/ pt for dispo planning. CM offered for pt to have a HC, RN check in on him. Pt reports that he is not interested. Pt reports [facility] and [facility]'t [facility]. Pt reports that he lives w/ his Mom. CM available for changes. Plan: Independent Date Signed: 01/19/2018 12:25 PM Electronically Signed By:JANE Martinez
--- NOTE | 2018-01-19 13:56 | HOSPPROG ---
Hospitalist Progress Note Assessment/Plan: * HTN urgency -14 HTN related hospitalizations since August -? non-compliance - patient denies -med rec incorrect - home meds are : clonidine 0.1mg tid and hydralazine 50mg tid -will also add norvasc -still requiring IV metoprolol for extreme BP elevations -cognitive testing okay - ? psych barriers to proper care - ? anxiety * Chest pain -reports negative stress test recently at [facility] negative * Insomnia -has tried all available med tx without improvement -? anxiety * CKD -baseline creatinine 1.2 - follow Objective: Vital Signs Temp Pulse Resp BP Pulse Ox 36.7 C 63 19 180/107 H 97 01/19/18 07:30 01/19/18 11:45 01/19/18 11:45 01/19/18 13:38 01/19/18 11:45 Laboratory Results 01/19/18 03:07 01/18/18 01/19/18 01/20/18 05:59 05:59 05:59 Intake Total 1632 Output Total 950 Balance 682 PT 12.9 SEC (12.0-15.0) 01/18/18 07:48 INR 0.98 (0.83-1.16) 01/18/18 07:48 - Physical Exam Constitutional: no apparent distress, appears nourished, not in pain Cardiovascular: regular rate and rhythym, no murmur, rub, or gallop Respiratory: no respiratory distress, no rales or rhonchi, clear to auscultation Gastrointestinal: normoactive bowel sounds, soft, non-tender abdomen, no palpable masses Skin: no rashes or abrasions, no fluctuance, no induration Neurologic: AAOx3, sensation intact bilaterally Psychiatric: interacting appropriately, not anxious, not encephalopathic, thought process linear ICD10 Worksheet Patient Problems: Problems Problem Status Onset Chest discomfort Acute Uncontrolled hypertension Acute Hypertension Acute Hypertensive emergency Acute Nausea Acute
[2018-01-19] MEDS ORDERED: DIAZEPAM 2 MG TAB PO PRN (13:59)
--- NOTE | 2018-01-19 15:13 | PDMN ---
Medical Necessity Medical necessity: change to IP; los>2mn for hypertensive urgency, chest pain, and CKD w/creat 1.4;continues to require IV metoprolol, monitor creat; comorbid anxiety/insomnia, hx stroke; per order and progress note 01/19/18
[2018-01-19] MEDS: ACETAMINOPHEN 325 MG TAB PO PRN (23:02)
[2018-01-20] MEDS: ACETAMINOPHEN 325 MG TAB PO PRN ×2 (01:18→21:46)
[2018-01-20] MEDS ORDERED: NS 1,000 ML IV SCH (08:45)
[2018-01-20] MEDS: amLODIPine BESYLATE 5 MG TAB PO SCH (10:02)
[2018-01-20] MEDS: ENOXAPARIN 40 MG/0.4 ML SYR SC SCH (10:03)
[2018-01-20] MEDS: ASPIRIN EC 81 MG TAB PO SCH (10:25)
--- NOTE | 2018-01-20 15:39 | HOSPPROG ---
Hospitalist Progress Note Assessment/Plan: * HTN urgency -14 HTN related hospitalizations since August -non-compliance vs. secondary gain vs. DD -med rec incorrect - home meds are : clonidine 0.1mg tid and hydralazine 50mg tid -add norvasc -consult social work to work on barriers to compliance * Chest pain -reports negative stress test recently at [facility] negative * Insomnia -has tried all available med tx without improvement -? anxiety * Acute on CKD -baseline creatinine 1.2 -IVF and recheck * BPH -start Flomax * Developmental Delay -d/w case management - ? adult day program Mom's phone number [phone] Mom still works every morning at as seafood manager, despite being 81 years old. Patient is home all day with sister, but she does not monitor meds. His situation worsened with hemorrhagic stroke in 2011 due to uncontrolled HTN - ? vascular dementia. He does not have DD. Mom states they do not monitor his BP meds because "he is a grown man" I will discuss with mom in am her need to increase monitoring of his situation, given his failure to self administer correctly. Will attempt HH RN at discharge, and possible outpatient adult day program. His cog eval with ST was not that bad, but inconsistent with behavior we see during the rest of they day. There does seem to be some cognitive dysfunction. ? psych. Subjective: No complaints. Objective: Vital Signs Temp Pulse Resp BP Pulse Ox 36.8 C 57 L 16 168/92 H 97 01/20/18 12:22 01/20/18 12:22 01/20/18 12:22 01/20/18 12:22 01/20/18 12:22 Laboratory Results 01/20/18 03:25 01/19/18 01/20/18 01/21/18 05:59 05:59 05:59 Intake Total 1750 Balance 1750 PT 12.9 SEC (12.0-15.0) 01/18/18 07:48 INR 0.98 (0.83-1.16) 01/18/18 07:48 - Physical Exam Constitutional: no apparent distress, appears nourished, not in pain Cardiovascular: regular rate and rhythym, no murmur, rub, or gallop Respiratory: no respiratory distress, no rales or rhonchi, clear to auscultation Gastrointestinal: normoactive bowel sounds, soft, non-tender abdomen, no palpable masses Skin: no rashes or abrasions, no fluctuance, no induration Neurologic: AAOx3, sensation intact bilaterally Psychiatric: interacting appropriately, not anxious, not encephalopathic, thought process linear ICD10 Worksheet Patient Problems: Problems Problem Status Onset Chest discomfort Acute Uncontrolled hypertension Acute Hypertension Acute Hypertensive emergency Acute Nausea Acute
[2018-01-20] MEDS: TAMSULOSIN HCL 0.4 MG CAP PO SCH (16:00)
--- NOTE | 2018-01-20 16:17 | ASMTCMCOM ---
CM Note CM Note Notes: 01/20/2018 Case Management Note Met pt during rounds today. Pt has had numerous admissions d/t poor med management for HTN. Phone call to Mom Madison [phone]. Mom works at [employer] from 4:30 am - 1:00 pm as junior assistant manager news production supervisor of detention services at age 81. 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 Pt lives with Mother Madison, sister Fransisca [phone], and 36 y.o. nephew Chuy. Sister Luisa can be reached at [phone] or [phone]. Neither Carroll or Fransisca monitor pt medications. Mom reports that the [facility] arranged a home health RN after hospitalization months ago but pt refused services. Left for [facility] strategic partnership specialist Chuckie Wallace [phone]. Pt may benefit from [facility] adult [facility] and daily RN services through [facility]. Case Management d/c poc: To be determined. pill coater would be beneficial for med management if pt is agreeable. Case Management to follow. Awaiting Radha Tan Consult. Date Signed: 01/20/2018 04:16 PM Electronically Signed By:Sandra Taylor, RN
[2018-01-21 07:07] VITALS: O2SAT 94
[2018-01-21] MEDS: ENOXAPARIN 40 MG/0.4 ML SYR SC SCH (08:21)
[2018-01-21] MEDS: amLODIPine BESYLATE 5 MG TAB PO SCH (08:21)
[2018-01-21] MEDS: TAMSULOSIN HCL 0.4 MG CAP PO SCH (08:21)
[2018-01-21] MEDS: ASPIRIN EC 81 MG TAB PO SCH (08:21)
[2018-01-21 11:15] VITALS: BP 139/83; PULSE 57; RESP 15; TEMP 98
--- NOTE | 2018-01-21 12:52 | PDIAF ---
- Diagnosis Diagnosis: HTN crisis Code Status: Full Code - Medication Management Discharge Medications: Medications to Continue on Transfer Aspirin EC [Aspirin EC 81 mg (*)] 81 mg PO DAILY 11/11/17 [Last Taken 12/16/17] Tamsulosin HCl [Flomax 0.4 MG (*)] 0.4 mg PO DAILY #30 cap 01/21/18 [Last Taken Unknown] amLODIPine BESYLATE [Norvasc 5 mg (*)] 5 mg PO DAILY #30 tab 01/21/18 [Last Taken Unknown] clonIDINE [Catapres (*)] 0.1 mg PO TID #90 tab 01/21/18 [Last Taken Unknown] hydrALAZINE [Apresoline 50 mg (*)] 50 mg PO TID #90 tab 01/21/18 [Last Taken Unknown] Discharge Medications: Refer to the Discharge Home Medication list for PRN reason. - Orders Services needed: Home Care, Registered Nurse Home Care Face to Face: I certify that this patient was under my care and that I had the required [id number] encounter meeting the encounter requirements on the discharge day. My findings support the fact that the patient is homebound as defined in Home Care Face to Face Continued: CMS Chapter 7 Medicare Benefits Manual 30.1.1 , The condition of the patient is such that there exists a normal inability to leave home and consequently, leaving home would require a considerable and taxing effort. Diet Recommendation: no restrictions on diet Additional: Home medication review. Home safety - Follow Up Care Current Providers and Referrals: Mario Rodriguez DO [Primary Care Provider] - As per Instructions
--- NOTE | 2018-01-21 13:33 | ASMTLACE ---
LACE Length of stay for Answers: 2 days current admission Acuity / Level of Answers: No Care: Did the patient have an inpatient admission? Comorbidities - select Answers: Cerebrovascular disease all that apply (CVA, TIA, aneurysms, vasc ular dementia) Mild liver or renal disease Other Notes: HTN, CKD # of Emergency department Answers: 9-12 visits in the last 6 months Score: 11 Date Signed: 01/21/2018 01:33 PM Electronically Signed By:Sandra Taylor RN
--- NOTE | 2018-01-21 14:53 | ASDISCHSUM ---
Discharge Information Plan Status:Home with Home Health Medically Cleared to Leave:01/20/2018 Discharge Date:01/21/2018 02:20 PM CM D/C Disposition:Home Health Service ADT D/C Disposition:Home Health Service Projected Discharge Date:01/21/2018 11:00 AM Transportation at D/C:Family Discharge Delay Reason: Follow-Up Date:01/21/2018 11:00 AM Discharge Slot: Final Diagnosis: Placement Information Referral Type:*Home Health Care Services Referral ID:[id number] Provider Name:[facility] Address 1:[address] [place] [address] Address 2: City:[place] Selection Factors: State:[place] Patient Contact Information Contact Name:SUSI Relationship:Mother Address:[address] Work Phone: City:[facility] Phone: [facility]/Zip Code:[place] [address] Email: Financial Information Financial Class:Medicare Primary Plan Desc:MEDICARE INPATIENT Primary Plan Number:[id number] Secondary Plan Desc: Secondary Plan Number: Assessment Information [facility] Initial CM Assessment Living Arrangements What is your living Answers: With One Parent arrangement? Who do you live with? Type Of Residence What kind of residence do Answers: House you live in? Discharge Plan Comments Coordination Status Comments Notes: Pts case discussed in morning rounds. Pt has a hx of leaving AMA. Pt is a 67 y/o man admitted for chest pain and uncontrolled hypertension. Therapies are recommending home independent. CM met w/ pt for dispo planning. CM offered for pt to have a HC, RN check in on him. Pt reports that he is not interested. [facility]. Pt reports that he lives w/ his Mom. CM available for changes. Plan: Independent Date Signed: 01/19/2018 12:25 PM Electronically Signed By:JANE Martinez LACE LACE Length of stay for Answers: 2 days current admission Acuity / Level of Answers: No Care: Did the patient have an inpatient admission? Comorbidities - select Answers: Cerebrovascular disease all that apply (CVA, TIA, aneurysms, vasc ular dementia) Mild liver or renal disease Other Notes: HTN, CKD # of Emergency department Answers: 9-12 visits in the last 6 months Score: 11 Date Signed: 01/21/2018 01:33 PM Electronically Signed By:Sandra Tyalor RN [facility] CM Progress Note CM Note CM Note Notes: 01/20/2018 Case Management Note Met pt during rounds today. Pt has had numerous admissions d/t poor med management for HTN. Phone call to Carroll Wallace [phone]. 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 Pt lives with Mother Madison, sister Fransisca [phone], and 36 y.o. nephew Chuy. Sister Luisa can be reached at [phone] or [phone]. Neither Carroll or Fransisca monitor pt medications. Carroll reports that the [facility] arranged a home health RN after hospitalization months ago but pt refused services. Left for [facility] media services specialist Chuckie Wallace [phone]. Pt may benefit from [facility] adult day program and daily RN services through [facility]. Case Management d/c poc: To be determined. rn patient care would be beneficial for med management if pt is agreeable. Case Management to follow. Awaiting [place] Consult. Date Signed: 01/20/2018 04:16 PM Electronically Signed By:Sandra Taylor RN Case Management Discharge Plan Note Case Management Discharge Discharge Order Complete? Answers: Yes Patient to Obtain Answers: via Family Medications Transportation Arranged Answers: Family/Friends Faxed Final Orders Answers: Yes Agency/Facility Transfer Answers: Yes Report Printed & Faxed to Receiving Agency Family Notified Answers: Yes Notes: per patient Discharge Comments Notes: 01/21/2018 Case Management Note Met w/pt. IM signed. Arranged home care through [facility] for BP monitoring and med management. Faxed orders and notified [facility] via phone. Pt mentioned [place] if needed. Pt sister Fransisca to transport home. Date Signed: 01/21/2018 02:52 PM Electronically Signed By:Sandra Taylor RN Intervention Information Intervention Type:*JULIEN-Signed Date of Service:01/19/2018 09:29 AM Patient Type:Observation Staff Member:Angelica Peralta Hours: Discipline: Severity: Comment: Intervention Type:*IM-Signed Date of Service:01/21/2018 01:25 PM Patient Type:Inpatient Staff Member:CHANCE Taylor Hillary Hours:0.25 Discipline: Severity: Comment:
--- NOTE | 2018-01-21 15:28 | GDS ---
[f rep st] DISCHARGE SUMMARY DISCHARGE DIAGNOSES: 1. Hypertensive crisis. 2. Mqymz-is-fxbeses kidney disease. 3. Benign prostatic hypertrophy. HISTORY OF PRESENT ILLNESS: The patient is a 67-year-old male who has had 14 hospitalization since O ctober for rewewkqnh-ee-bcewfvv hypertension. The problem is really more due to his compliance rathe r than his underlying hypertension being particularly severe. We did continue his home medications t hroughout his hospitalization, including clonidine 0.1 mg p.o. t.i.d. and hydralazine 50 mg p.o. t.i. d. We also added Norvasc 5 mg p.o. daily. On this regimen, he does have good blood pressure control when it is taken in a controlled manner in the hospital. We really tried to get to the bottom of hi s barriers to compliance with medical therapy. His speech therapy cognitive evaluation was in normal limits and he was felt to have adequate cognition in order to self-manage his medications. We suspe ct anxiety is also contributing to his recurrent ER visits. He lives with his 81-year-old mother, sanjeev noyola still works as a vehicle cost engineer at , and is very high functioning. She was not monitoring his blood p ressure medications at all, thinking that he was doing an adequate job. I urged her to assist him in home med management. He also agreed to home VNS for home med review to help him with compliance. Evon love is recently [place] a local [facility] primary care, and I think that wi ll also help keep him out of the hospital, as hopefully he will have better access to primary care ra ther than recurrent ER visits. In addition to being hospitalized at [facility], he has had recent hospitalizations at [facility], [facility], and the [place]. He had recently had a stress test at [facility]. His troponins here were negative and I did not think that need to be repeated. He did have some mild acute renal failure during this hospitalization. His baseline creatinine is 1. 2. Once we initiated medications, his creatinine did bump to 1.6. Renal ultrasound was negative. I suspect his blood pressure is lower than he has typically been running and that caused this little b ump in creatinine. That is coming down at the time of hospital discharge. He does complain of BPH s ymptoms and was initiated on Flomax, and would like to continue it post discharge. DISCHARGE MEDICATIONS: Please see computer record for full detailed list. New medications: 1. Norvasc 5 mg p.o. daily. 2. Flomax 0.4 mg p.o. daily. DISCHARGE INSTRUCTIONS: 1. Follow up with primary care tomorrow, as already scheduled. 2. Patient was encouraged to call 19/06 on-call primary care physician prior to returning to the [facility] room. 3. Home Health VNS for assistance with medication compliance and home medication review. 4. Patient is also agreeable to have his mother and sister assist him in med management, as he is on a complicated t.i.d. regimen. The reason for this complicated t.i.d. regimen is patient's preferenc e, as he has not liked many of the other medications he has tried in the past. Greater than 30 minutes' time was spent arranging this discharge. Patient was seen and examined by duncan love on day of discharge. /[id number]/MODL
== END 2018-01-21 14:20 | disposition home health service (06) | DRG 305 ==
LOC: CED 07:23 → F2W 11:05 → OBSVTOIN 01-19 13:52
PROVIDERS: ADMIT Internal Medicine; ATTEND Internal Medicine
DX: I16.0 Hypertensive urgency (principal); N17.9 Acute kidney failure, unspecified; I12.9 Hypertensive chronic kidney disease with stage 1 through stage 4 chronic kidney disease, or unspecified chronic kidney disease; N18.9 Chronic kidney disease, unspecified; N40.0 Benign prostatic hyperplasia without lower urinary tract symptoms; G47.00 Insomnia, unspecified
CPT/HCPCS: 71045-PO; 80048-PO; 81003-PO; 81015-PO; 82550-PO; 82553-PO; 84443-PO; 84484-PO; 85025-PO; 85610-PO; 85730-PO; 92523-GN; 96374; 97161-GP; 97165-GO; G0378; G8978-GP-CH; G8979-GP-CH; G8980-GP-CH; G8987-GO-CI; G8988-GO-CI; G8989-GO-CI; G9165-GN-CH; G9166-GN-CH; G9167-GN-CH; J0360; J1650

== ENCOUNTER 2019-04-17 01:54 | Emergency (ER) | payer OTHER ==
--- NOTE | 2019-04-17 02:40 | EDPHY ---
H & P Stated Complaint: tachycardia - Personal History Current Tetanus Diphtheria and Acellular Pertussis (TDAP): Yes - Medical/Surgical History Hx Asthma: No Hx Chronic Respiratory Disease: No Hx Diabetes: No Hx Cardiac Disease: No Hx Renal Disease: No Hx Cirrhosis: No Hx Alcoholism: Yes Hx HIV/AIDS: No Hx Splenectomy or Spleen Trauma: No Other PMH: hypertension. bladder issues. diverticulitis /surgery. 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 The tonight with palpitations. Patient states he has the sensation he feels his blood pressure is out of control. He has been taking his medications as prescribed. He did not have any chest pain. No shortness of breath. He presented to the local fire house who called for an ambulance. Patient's days his symptoms have now resolved but he wanted to be evaluated in the hospital. No recent illness. No fevers or chills. No leg pain or swelling. There are no aggravating or alleviating factors. Currently is without symptom. ROS: 10 systems were reviewed and were negative except those elements noted in the HPI. PMH: Hypertension Social History: No smoking, no alcohol, no recreational drug use Family History: No history of coronary artery disease or thromboembolic disease Physical Exam: Gen: Awake, Alert, No Distress HEENT: Nose: no rhinorrhea Eyes: PERRLA, EOMI Mouth: Moist mucosa Neck: Supple, no JVD Chest: nontender, lungs clear to auscultation Heart: S1, S2 normal, no murmur Abd: Soft, non-tender, no guarding Back: no CVA tenderness, no midline tenderness Ext: no edema, non-tender Skin: no rash Neuro: CN II-XII intact, Sensation grossly intact, Strength 5/5 in bilateral upper and lower extremities (David Sharp) Constitutional: Initial Vital Signs Temperature (C) 36.6 C 04/17/19 02:04 Heart Rate 95 04/17/19 02:04 Respiratory Rate 16 04/17/19 02:04 Blood Pressure 165/79 H 04/17/19 02:04 O2 Sat (%) 94 04/17/19 02:04 O2 Delivery Mode Room Air Allergies/Adverse Reactions: pseudoephedrine HCl [From Sudafed] Allergy (Unknown, Verified 04/17/19 02:04) Pt reports vomiting lorazepam [From Ativan] Allergy (Verified 04/17/19 02:04) Pt reports vomiting Home Medications: Medication Instructions Recorded Aspirin EC [Aspirin EC 81 mg (*)] 81 mg PO DAILY 11/11/17 amLODIPine BESYLATE [Norvasc 5 mg 5 mg PO DAILY #30 tab 01/21/18 (*)] clonIDINE [Catapres (*)] 0.1 mg PO TID #90 tab 01/21/18 hydrALAZINE [Apresoline 50 mg (*)] 50 mg PO TID #90 tab 01/21/18 Medical Decision Making - Diagnostics EKG Interpretation: ECG time 2:01 a.m., sinus rhythm with a rate in 98, normal axis, normal intervals, nonspecific T-wave changes no lateral leads. (David Sharp) Imaging Results: Imaging Impressions Chest X-Ray 04/17/19 06:59 Impression: Mild airways disease/bronchitis. Otherwise normal. Two-view chest x-ray interpreted by me is normal Low-dose CT angiogram shows very small right pleural effusion and some right lower lobe atelectasis. No evidence for pulmonary embolus (Rigo Toscano) ED Course/Re-evaluation: 68-year-old male presenting with palpitations. Patient initially tachycardic. D-dimer laboratory evaluation and sent. Troponin is normal. D-dimer noted to be elevated. Patient's creatinine is 1.7. Will administer 2 L of normal saline and reassess. Heart rate is now 86. Oxygen saturations in the 90s. Repeat creatinine after 2 L IV fluid is only 1.6. Given the patient's initial symptoms an elevated D-dimer patient will require a V/Q scan to rule out thromboembolic disease. 0700 Patient is resting comfortably. Vital signs have return to normal. Patient signed out to Dr. Toscano pending V/Q scan. (David Sharp) Re-evaluation by me at 7:50 a.m. Patient is stable. He tells me he is feeling a lot better. His labs and EKG are reviewed by me. Discussion with CT who feels they can give the patient low-dose contrast for his creatinine of 1.6 for CTA of his chest. Indication is elevated D-dimer. Re-evaluation again at 9:10 a.m.. Patient is stable. He is without symptoms. He and I discussed imaging study results, treatment plan including criteria for return importance of follow-up further evaluation. He expresses understanding and agreement (Rigo Toscano) Differential Diagnosis: Palpitations that have resolved. We considered acute coronary syndrome as well as pulmonary embolus and pneumothorax. (Rigo Toscano) - Data Points Laboratory Results: Laboratory Results 04/17/19 02:32 04/17/19 02:09 04/17/19 04/17/19 04/17/19 04:58 02:32 02:32 WBC 4.18 10^3/uL 10^3/uL (3.80-9.50) RBC 5.09 10^6/uL 10^6/uL (4.40-6.38) Hgb 16.3 g/dL g/dL (13.7-17.5) POC Hgb 14.6 gm/dL gm/dL (13.7-17.5) Hct 46.9 % % (40.0-51.0) POC Hct 43 % % (40-51) MCV 92.1 fL fL (81.5-99.8) MCH 32.0 pg pg (27.9-34.1) MCHC 34.8 g/dL g/dL (32.4-36.7) RDW 13.6 % % (11.5-15.2) Plt Count 170 10^3/uL 10^3/uL (150-400) MPV 10.6 fL fL (8.7-11.7) Neut % (Auto) 76.1 % H % (39.3-74.2) Lymph % (Auto) 11.2 % L % (15.0-45.0) Norman % (Auto) 9.1 % % (4.5-13.0) Eos % (Auto) 2.9 % % (0.6-7.6) Baso % (Auto) 0.5 % % (0.3-1.7) Nucleat RBC Rel Count 0.0 % % (0.0-0.2) Absolute Neuts (auto) 3.18 10^3/uL 10^3/uL (1.70-6.50) Absolute Lymphs (auto) 0.47 10^3/uL L 10^3/uL (1.00-3.00) Absolute Monos (auto) 0.38 10^3/uL 10^3/uL (0.30-0.80) Absolute Eos (auto) 0.12 10^3/uL 10^3/uL (0.03-0.40) Absolute Basos (auto) 0.02 10^3/uL 10^3/uL (0.02-0.10) Absolute Nucleated RBC 0.00 10^3/uL 10^3/uL (0-0.01) Immature Gran % 0.2 % % (0.0-1.1) Immature Gran # 0.01 10^3/uL 10^3/uL (0.00-0.10) RBC/WBC/PLT Morphology TNP Platelet Estimate TNP D-Dimer 0.85 ug/mLFEU H ug/mLFEU (0.00-0.50) POC Sodium 145 mEq/L mEq/L (135-145) Sodium POC Potassium 4.3 mEq/L mEq/L (3.3-5.0) Potassium POC Chloride 115 mEq/L H mEq/L (97-110) Chloride Carbon Dioxide POC Total CO2 18 mEq/L L mEq/L (22-31) Anion Gap POC BUN 31 mg/dL H mg/dL (7-23) BUN Creatinine POC Creatinine 1.6 mg/dL H mg/dL (0.7-1.3) Estimated GFR Glucose POC Glucose 110 mg/dL H mg/dL (70-100) Calcium POC Troponin I 04/17/19 04/17/19 04/17/19 02:25 02:09 02:09 WBC RBC Hgb POC Hgb Hct POC Hct MCV MCH MCHC RDW Plt Count MPV Neut % (Auto) Lymph % (Auto) Norman % (Auto) Eos % (Auto) Baso % (Auto) Nucleat RBC Rel Count Absolute Neuts (auto) Absolute Lymphs (auto) Absolute Monos (auto) Absolute Eos (auto) Absolute Basos (auto) Absolute Nucleated RBC Immature Gran % Immature Gran # RBC/WBC/PLT Morphology Platelet Estimate D-Dimer REJ POC Sodium Sodium 139 mEq/L mEq/L (135-145) POC Potassium Potassium 4.0 mEq/L mEq/L (3.5-5.2) POC Chloride Chloride 109 mEq/L mEq/L (97-110) Carbon Dioxide 18 mEq/l L mEq/l (22-31) POC Total CO2 Anion Gap 12 mEq/L mEq/L (6-14) POC BUN BUN 30 mg/dL H mg/dL (7-23) Creatinine 1.7 mg/dL H mg/dL (0.7-1.3) POC Creatinine Estimated GFR 41 Glucose 139 mg/dL H mg/dL (70-100) POC Glucose Calcium 9.7 mg/dL mg/dL (8.5-10.4) POC Troponin I 0.03 ng/mL ng/mL (0.00-0.08) 04/17/19 02:09 WBC REJ RBC REJ Hgb REJ POC Hgb Hct REJ POC Hct MCV REJ MCH REJ MCHC REJ RDW REJ Plt Count REJ MPV REJ Neut % (Auto) REJ Lymph % (Auto) REJ Norman % (Auto) REJ Eos % (Auto) REJ Baso % (Auto) REJ Nucleat RBC Rel Count REJ Absolute Neuts (auto) REJ Absolute Lymphs (auto) REJ Absolute Monos (auto) REJ Absolute Eos (auto) REJ Absolute Basos (auto) REJ Absolute Nucleated RBC REJ Immature Gran % REJ Immature Gran # REJ RBC/WBC/PLT Morphology Platelet Estimate D-Dimer POC Sodium Sodium POC Potassium Potassium POC Chloride Chloride Carbon Dioxide POC Total CO2 Anion Gap POC BUN BUN Creatinine POC Creatinine Estimated GFR Glucose POC Glucose Calcium POC Troponin I Medications Given: Discontinued Medications Sodium Chloride (Ns) 1,000 mls @ 0 mls/hr IV ONCE ONE; Wide Open PRN Reason: Protocol Stop: 04/17/19 03:01 Last Admin: 04/17/19 03:03 Dose: 1,000 mls Sodium Chloride (Ns) 1,000 mls @ 0 mls/hr IV ONCE ONE; Wide Open PRN Reason: Protocol Stop: 04/17/19 03:12 Last Admin: 04/17/19 03:15 Dose: 1,000 mls Point of Care Test Results: Chemistry 04/17/19 04/17/19 04:58 02:25 POC Sodium 145 mEq/L mEq/L (135-145) POC Potassium 4.3 mEq/L mEq/L (3.3-5.0) POC Chloride 115 mEq/L H mEq/L (97-110) POC Total CO2 18 mEq/L L mEq/L (22-31) POC BUN 31 mg/dL H mg/dL (7-23) POC Creatinine 1.6 mg/dL H mg/dL (0.7-1.3) POC Glucose 110 mg/dL H mg/dL (70-100) POC Troponin I 0.03 ng/mL ng/mL (0.00-0.08) ISTAT H&H 04/17/19 04:58 POC Hgb 14.6 gm/dL gm/dL (13.7-17.5) POC Hct 43 % % (40-51) Departure - Departure Disposition: Home, Routine, Self-Care Clinical Impression: Palpitations Condition: Good Instructions: Heart Palpitations (ED) Additional Instructions: Follow up with your primary care physician in 1-2 days for further evaluation. Return to the emergency department increasing palpitations, chest pain, shortness of breath, fainting, or any other concerns. Drink plenty of fluids today and stay hydrated Ice to area of your left forearm 20 min of each hour today. Referrals: Patient,NotPresent [Unknown] - As per Instructions
[2019-04-17 02:42] LABS: PLATELET COUNT 170 10^3/uL (150-400)
[2019-04-17] MEDS ORDERED: NS 1,000 ML IV ONE ×2 (03:00→03:11)
--- NOTE | 2019-04-17 05:47 | CPEKG ---
Test Reason : OPEN Blood Pressure : / mmHG Vent. Rate : 098 BPM Atrial Rate : 098 BPM P-R Int : 143 ms QRS Dur : 131 ms QT Int : 393 ms P-R-T Axes : 065 064 -71 degrees QTc Int : 502 ms Sinus rhythm Probable left atrial enlargement Right bundle branch block Nonspecific T abnormalities, lateral leads Confirmed by David Sharp ([id number]) on 04/17/2019 5:46:34 AM Referred By: David Sharp Confirmed By:David Sharp
[2019-04-17] MEDS ORDERED: IOPAMIDOL (ISOVUE 370) 100 ML BTL IV ONE (08:23)
[2019-04-17 09:34] VITALS: BP 139/80
== END 2019-04-17 09:32 | disposition home or self-care (01) ==
LOC: EDUNIT#
DX: R00.2 Palpitations (principal); J40 Bronchitis, not specified as acute or chronic; I10 Essential (primary) hypertension; E86.9 Volume depletion, unspecified; Z87.891 Personal history of nicotine dependence
CPT/HCPCS: 71046; 71275; 93005; 96360; 99285; Q9967; 82435-PO; 82565-PO; 82947-PO; 84132-PO; 84295-PO; 84484-ER; 84520-PO; 85014-ER